=== PATIENT | female | born 1995 | race Hispanic/Latino ===

== ENCOUNTER 2018-03-24 15:55 | Emergency (ER) | payer OTHER, MEDICAID, SELFPAY ==
[2018-03-24 16:09] VITALS: BP 116/73; PULSE 95; RESP 15; TEMP 36.9; O2SAT 100; BMI 29.4
[2018-03-24] MEDS: predniSONE 20 MG TABLET 60 MG PO (16:27)
[2018-03-24] MEDS: diphenhydrAMINE 25 MG TABLET PO (16:27)
--- NOTE | 2018-03-24 17:26 | ED.ALLEREA ---
HPI - Allergic Reaction General Chief complaint: Allergic Reaction Stated complaint: allergic reaction Time Seen by Provider: 03/24/18 17:26 Source: patient Mode of arrival: ambulatory Limitations: no limitations History of Present Illness HPI narrative: The patient is a 22-year-old female who has history of multiple allergic reactions to weak. She actually was getting an allergy shot today when she felt that her throat was swollen and then she started having upper lip swelling. She actually waited at [facility] to be evaluated but felt like it was getting worse so she came to the ER here. She did get an IV but unclear if she got any medication she says no. She did get prednisone and Benadryl here she overall is feeling better. MD complaint: allergic reaction and facial swelling Related Data Home Medications Medication Instructions Recorded Confirmed cetirizine 20 mg PO QDAYP PRN #0 05/15/16 11/24/17 ibuprofen 600 mg PO TID #0 10/17/16 11/24/17 multivitamin [Multiple Vitamins] 1 tab PO QDAY #0 10/23/16 11/24/17 amitriptyline 30 mg PO HS #0 03/20/17 11/24/17 sumatriptan succinate [Imitrex] 25 mg PO QDAY PRN #0 03/20/17 03/24/18 fluticasone 1 spray 03/24/18 Previous Rx's Medication Instructions Recorded epinephrine 0.3 mg IM PRN PRN #1 syr 04/08/17 clotrimazole-betamethasone 1 denae TOPICAL BID #30 gm 07/21/17 [Lotrisone] Allergies Allergy/AdvReac Type Severity Reaction Status Date / Time penicillin G [PENICILLIN G] Allergy Severe rash Verified 03/24/18 16:09 wheat [WHEAT] Allergy Unknown Verified 03/24/18 16:09 allergy shot Allergy Uncoded 03/24/18 16:09 Review of Systems Review of Systems GENERAL: Denies chills, fatigue, malaise, fever, sweats, travel HEENT: See HPI RESPIRATORY: Denies dyspnea, cough, wheezing, hemoptysis, sputum. CARDIOVASCULAR: Denies chest pain, palpitations, orthopnea, edema GASTROINTESTINAL: Denies nausea, vomiting, abdominal pain, diarrhea, constipation, melena. : Denies dysuria, frequency, incontinence, hematuria, urinary retention, flank pain. MUSCULOSKELETAL: Denies weakness, joint pain, or bony pain SKIN: No rash, no erythema, no pruritus NEUROLOGIC: Denies weakness, dizziness, headache, numbness, change in speech, confusion PSYCHIATRIC: No concerning psychosocial issues. 12 point review of systems is negative except for those stated above and HPI PFSH Family History Brother Age: 18 Asthma Father Age: 46 Hyperlipidemia Diabetes mellitus Sister Age: 11 Asthma Social History Smoking Status: Never smoker Exam Initial Vital Signs Initial Vital Signs: Vital Signs Temperature 98.4 F 03/24/18 16:09 Pulse Rate 95 H 03/24/18 16:09 Respiratory Rate 15 03/24/18 16:09 Blood Pressure 116/73 03/24/18 16:09 Pulse Oximetry 100 03/24/18 16:09 GENERAL: [Well-appearing, well-nourished] and in [no acute] distress. HEENT: Head atraumatic,EOMI, No lip swelling no tongue swelling no stridor CARDIOVASCULAR: Regular rate and rhythm without murmurs, rubs or gallops. RESPIRATORY: Breath sounds equal bilaterally, no wheezes rales or rhonchi. ABDOMEN: Soft, nontender. Normoactive bowel sounds all 4 quadrants. No guarding or rebound. EXTREMITIES: Normal range of motion, no clubbing or edema. Neurovascularly intact NEUROLOGICAL: Alert and oriented x4. SKIN: Warm, dry, no laceration, no petechiae, no rashes or lesions. which is some mild erythema on the dorsal side of her hand which she says is new. His blanchable non streaking Course Orders Ordered: Discontinued Medications Diphenhydramine HCl (Benadryl) 25 mg PO NOW ONE Stop: 03/24/18 16:27 Last Admin: 03/24/18 16:27 Dose: 25 mg Prednisone (Deltasone) 60 mg PO NOW ONE Stop: 03/24/18 16:27 Last Admin: 03/24/18 16:27 Dose: 60 mg Vital Signs - 8 hr 03/24/18 16:09 03/24/18 17:43 Temperature 98.4 F 98.4 F Pulse Rate 95 H 83 Respiratory Rate 15 15 Blood Pressure 116/73 124/80 Pulse Oximetry 100 99 MDM - Allergic Reaction MDM Narrative Medical decision making narrative: she actually comes with an IV from [facility]. She feels ready and able to go home she has had multiple reactions like this in the past she knows warning signs. Discharge Plan Departure Patient Disposition: Home Clinical Impression: Allergic reaction Discharge Date/Time: 03/24/18 17:44 Interventions: ED Discharge Assessment Last Done: 03/24/18 17:43 Instructions: Anaphylaxis Activity Restrictions/Additional Instructions: *You have been diagnosed with allergic reaction *Continue to take medications as directed *Follow up with your primary care provider in 2-3 days *Return to ER if you should have any new, worsening or concerning symptoms Prescriptions: No Action cetirizine 10 MG tablet 20 mg PO QDAYP PRNQty: 0 RF: 0 ibuprofen 600 MG tablet 600 mg PO TID Qty: 0 RF: 0 multivitamin [Multiple Vitamins] 1 EACH tablet 1 tab PO QDAY Qty: 0 RF: 0 amitriptyline 10 MG tablet 30 mg PO HS Qty: 0 RF: 0 sumatriptan succinate [Imitrex] 25 MG tablet 25 mg PO QDAY PRN (Reason: Migraine Headache) Qty: 0 RF: 0 epinephrine 0.3 MG/0.3 ML auto-injector 0.3 mg IM PRN PRNQty: 1 RF: 0 clotrimazole-betamethasone [Lotrisone] 15 GM cream 1 denae Topical BID Qty: 30 RF: 1 fluticasone 50 mcg/actuation spray,suspension 1 spray RF: 0 Referrals: Casandra aMnzo DO [Primary Care Provider] -
[2018-03-24 17:43] VITALS: BP 124/80; PULSE 83; RESP 15; TEMP 36.9; O2SAT 99
== END 2018-03-24 17:44 | disposition home or self-care (01) ==
PROVIDERS: Emergency Provider Emergency Medicine; PCP Family Medicine
DX: T78.40XA Allergy, unspecified, initial encounter (principal)
CPT/HCPCS: 99282; 99283

== ENCOUNTER 2018-04-25 19:18 | Emergency (ER) | payer OTHER, MEDICAID, SELFPAY ==
[2018-04-25 19:21] VITALS: BP 120/75; PULSE 72; TEMP 36.9; O2SAT 100
--- NOTE | 2018-04-25 20:01 | ED_ITS ---
HPI - Abdominal Pain <Karin Javier PA-C - Last Filed: 04/25/18 22:40> General Chief Complaint: Abdominal Pain Stated Complaint: BACK PAIN HAD URINE SAMPLE COME OUT WITH BLOOD Time Seen by Provider: 04/25/18 19:59 Source: patient and old records reviewed Mode of arrival: ambulatory Limitations: no limitations History of Present Illness HPI narrative: This 22-year-old female is sent for evaluation of left flank pain by 1 of the local urgent care clinics today. Report from there shows that she had a large amount of micro hematuria, but no leukocytes or nitrites in the urine. test was negative. Patient states that pain began about a week ago, more localized in the left back/flank area. At 1st she thought it was muscle pain or spasm, but since then the frequency of pain episodes have increased and has started to radiate around to the side and left upper abdominal area. She states that these areas can be tender to touch. 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 This is not typical for her. She states that there do not seem to be triggering features for pain at this point nor clear alleviating features. She was taking ibuprofen but has not taken any today. She denies any fever, chills, sweats. She states that she has had a little bit of nausea at times but has been eating and drinking normally including pushing fluids over the weekend. She states that she has some increased urinary frequency after drinking more fluids, no dysuria. She denies vaginal discharge or STD concerns. She denies any bowel habit changes and had a normal bowel movement today. She denies any recent illness, no new chest pain , dyspnea or other complaints on systems review. LMP was about a month ago Related Data Home Medications Medication Instructions Recorded Confirmed cetirizine 20 mg PO QDAYP PRN #0 05/15/16 11/24/17 ibuprofen 600 mg PO TID #0 10/17/16 11/24/17 multivitamin [Multiple Vitamins] 1 tab PO QDAY #0 10/23/16 11/24/17 amitriptyline 30 mg PO HS #0 03/20/17 11/24/17 sumatriptan succinate [Imitrex] 25 mg PO QDAY PRN #0 03/20/17 03/24/18 fluticasone 1 spray 03/24/18 Previous Rx's Medication Instructions Recorded epinephrine 0.3 mg IM PRN PRN #1 syr 04/08/17 clotrimazole-betamethasone 1 denae TOPICAL BID #30 gm 07/21/17 [Lotrisone] meloxicam 15 mg PO DAILY #10 tab 04/25/18 sulfamethoxazole-trimethoprim 1 tab PO BID #4 tab 04/25/18 Allergies Allergy/AdvReac Type Severity Reaction Status Date / Time penicillin G [PENICILLIN G] Allergy Severe rash Verified 03/24/18 16:09 wheat [WHEAT] Allergy Unknown Verified 03/24/18 16:09 allergy shot Allergy Uncoded 03/24/18 16:09 Review of Systems <Karin Javier PA-C - Last Filed: 04/25/18 22:40> Review of Systems All systems reviewed & are unremarkable except as noted in HPI and below Exam <Karin Javier PA-C - Last Filed: 04/25/18 22:40> Narrative Exam Narrative: GENERAL APPEARANCE: Patient sitting comfortably, in no distress. HEENT: PERRL, EOMI, no scleral icterus NECK: Supple LUNGS: Clear to auscultation bilaterally. HEART: Rate and rhythm regular, normal S1 and S2, no S3 or S4. ABDOMEN: Soft, nondistended, bowel sounds present x 4 quadrants, no masses palpable, no hepatosplenomegaly. She has mild tenderness from the left lateral flank to the lateral abdomen and more tenderness over the lateral anterior costal margin without guarding or rebound. No tenderness elsewhere over the abdomen EXTREMITIES: No edema, no calf tenderness DERMATOLOGIC: No jaundice or exanthem NEUROLOGIC: Alert and oriented with normal speech and coordination Initial Vital Signs Initial Vital Signs: Vital Signs Temperature 98.5 F 04/25/18 19:21 Pulse Rate 72 04/25/18 19:21 Blood Pressure 120/75 04/25/18 19:21 Pulse Oximetry 100 04/25/18 19:21 <Terry Fuller MD - Last Filed: 04/26/18 07:21> Initial Vital Signs Initial Vital Signs: Vital Signs Temperature 98.5 F 04/25/18 19:21 Pulse Rate 72 04/25/18 19:21 Blood Pressure 120/75 04/25/18 19:21 Pulse Oximetry 100 04/25/18 19:21 Course <Karin Javier PA-C - Last Filed: 04/25/18 22:40> Orders Ordered: Discontinued Medications Ketorolac Tromethamine (Toradol) 30 mg IV NOW ONE Stop: 04/25/18 20:17 Last Admin: 04/25/18 20:26 Dose: 30 mg Trimethoprim/Sulfamethoxazole (Bactrim Ds Prepack) 1 bottle MISC SEEINSTR ONE Stop: 04/25/18 22:38 Last Admin: 04/25/18 22:41 Dose: 1 bottle Patient reported significant improvement after Toradol and appeared comfortable. I spoke with Dr. Rod radiologist reading films who advised there is a nonobstructing 2 mm calculus in the right kidney with no hydronephrosis, mild generalized bladder wall thickening. Diverticulosis without diverticulitis. Vital Signs - 8 hr 04/25/18 19:21 04/25/18 21:24 Temperature 98.5 F Pulse Rate 72 76 Respiratory Rate 19 Blood Pressure 120/75 Blood Pressure [Right Arm] 101/50 L Pulse Oximetry 100 100 <Terry Fuller MD - Last Filed: 04/26/18 07:21> Orders Ordered: Discontinued Medications Ketorolac Tromethamine (Toradol) 30 mg IV NOW ONE Stop: 04/25/18 20:17 Last Admin: 04/25/18 20:26 Dose: 30 mg Trimethoprim/Sulfamethoxazole (Bactrim Ds Prepack) 1 bottle MISC SEEINSTR ONE Stop: 04/25/18 22:38 Last Admin: 04/25/18 22:41 Dose: 1 bottle Vital Signs - 8 hr 04/25/18 19:21 04/25/18 21:24 Temperature 98.5 F Pulse Rate 72 76 Respiratory Rate 19 Blood Pressure 120/75 Blood Pressure [Right Arm] 101/50 L Pulse Oximetry 100 100 MDM - Abdominal Pain <Karin Javier PA-C - Last Filed: 04/25/18 22:40> Medical Records Attestation: I reviewed the patient's medical records. Lab Data Attestation: I reviewed the patient's lab results. Result diagrams: 04/25/18 20:20 04/25/18 20:20 Lab Results 04/25/18 04/25/18 04/25/18 Range/Units 20:05 20:20 20:20 WBC 9.0 (4.5-11.0) X10^3/uL RBC 4.54 (4.0-5.2) X10^6/uL Hgb 13.3 (12.0-16.0) g/dL Hct 40.1 (36-46) % MCV 88.2 (80-100) fL MCH 29.2 (26-34) PG MCHC 33.1 (30-36) % RDW 14.0 (11.6-14.8) % Plt Count 359 (150-400) X10^3/uL Neut % (Auto) 52.7 (50-75) % Lymph % (Auto) 33.2 (25-40) % Cole % (Auto) 9.4 (3-14) % Eos % (Auto) 4.1 H (2-4) % Baso % (Auto) 0.6 (0-2) % Neut # (Auto) 4800 (7678-3855) /uL Sodium 143 (137-145) mmol/L Potassium 3.7 (3.4-5.1) mmol/L Chloride 106 (98-107) mmol/L Carbon Dioxide 24 (22-32) mmol/L BUN 7 (7-17) mg/dL Creatinine 0.40 L (0.52-1.04) mg/dL Estimated GFR > 60.0 (>60) mL/min BUN/Creatinine Ratio 17.5 (6-22) Glucose 88 (70-100) mg/dL Calcium 8.9 (8.4-10.2) mg/dL Total Bilirubin 0.2 (0.2-1.3) mg/dL AST 25 (14-36) IU/L ALT 25 (9-52) IU/L Alkaline Phosphatase 68 (38-126) U/L Total Protein 7.2 (6.3-8.2) g/dL Albumin 4.2 (3.5-5.0) g/dL Globulin 3.0 (1.7-4.1) g/dL Albumin/Globulin Ratio 1.4 (1.0-2.8) Lipase 95 (23-300) U/L Urine Color Yellow Urine Appearance Clear Urine pH 6.0 (4.5-8.0) Ur Specific [place] 1.020 (1.000-1.035) Urine Protein Negative (Negative) Urine Glucose (UA) Negative (Normal) g/dL Urine Ketones Negative (NEGATIVE) Urine Occult Blood 2+ H (Negative) Urine Nitrate Negative (Negative) Urine Bilirubin Negative (NEGATIVE) Urine Urobilinogen 0.2 (0.2) E.U./dL Ur Leukocyte Esterase Negative (NEGATIVE) Urine RBC 0-1/hpf (0-5/HPF) Urine WBC 0-1/hpf (0-5/HPF) Ur Squamous Epith Cells 5-10 /hpf H Urine Bacteria Few (2-10) H (None) Ur Culture Indicated? Cult not indicated Micro UA Comment Not Reportable Imaging Data KUB: Radiologist's impression: [address] [address] [address] Scan Report Signed Patient: Kaleigh Blackwood MR#: [id number] : 1995 Acct:[id number] Age/Sex: 22 / F Date of Service: 04/25/18 Loc: ED Accession Number: [id number] Procedure: CT kidney ureter bladder (KUB) Ordering Provider: Karin Javier P.A-C PROCEDURE: CT KIDNEY URETER BLADDER (KUB) INDICATIONS: Left flank pain, hematuria TECHNIQUE: Noncontrast 5 mm thick sections acquired from the diaphragms to the symphysis. 5 mm thick coronal and sagittal reformats were then performed. For radiation dose reduction, the following was used: automated exposure control, adjustment of mA and/or kV according to patient size. COMPARISON: [facility], CT, HEAD WITHOUT CONTRAST, 10/17/2016, 10:04. FINDINGS: Image quality: Excellent. Lung bases: Lung bases are clear. Heart size is normal. Urinary system: Both kidneys are normal in size. There is a 2 mm nonobstructing nephrolith within the right renal pelvis. No hydronephrosis or perinephric fat stranding. Both ureters appear non-dilated throughout their expected courses. Bladder wall thickness is mildly thickened; no calcified bladder stones. Other solid organs: Liver is normal in size. Gallbladder is unremarkable. Pancreas is normal in contours. Spleen is normal in size. No adrenal nodules. Peritoneum and bowel: Unenhanced bowel loops demonstrate normal wall thickness and caliber. No free fluid or air. There is colonic diverticulosis without evidence of acute diverticulitis. Normal appendix best seen on axial image 66 of series 2. Nodes and vessels: No retroperitoneal or mesenteric adenopathy by size criteria. Aorta and inferior vena cava are normal in caliber. Abdominal wall: No ventral hernias. Pelvis: No free pelvic fluid. No inguinal hernias or adenopathy. Bones: Mild degenerative changes of the anterior bilateral sacroiliac joints. IMPRESSION: #1. 2 mm nonobstructing nephrolith within the right kidney. No hydronephrosis bilaterally. #2. Mild diffuse bladder wall thickening, which may be secondary to incomplete distention versus underlying inflammation. Correlation with urinalysis suggested to exclude urinary tract infection. #3. Colonic diverticulosis without evidence of acute diverticulitis. Dictated by: Jim Rod M.D. on 04/25/2018 at 22:10 Approved by: Jim Rod M.D. on 04/25/2018 at 22:19 <Terry Fuller MD - Last Filed: 04/26/18 07:21> Lab Data Lab Results 04/25/18 04/25/18 04/25/18 Range/Units 20:05 20:20 20:20 WBC 9.0 (4.5-11.0) X10^3/uL RBC 4.54 (4.0-5.2) X10^6/uL Hgb 13.3 (12.0-16.0) g/dL Hct 40.1 (36-46) % MCV 88.2 (80-100) fL MCH 29.2 (26-34) PG MCHC 33.1 (30-36) % RDW 14.0 (11.6-14.8) % Plt Count 359 (150-400) X10^3/uL Neut % (Auto) 52.7 (50-75) % Lymph % (Auto) 33.2 (25-40) % Cole % (Auto) 9.4 (3-14) % Eos % (Auto) 4.1 H (2-4) % Baso % (Auto) 0.6 (0-2) % Neut # (Auto) 4800 (0459-0299) /uL Sodium 143 (137-145) mmol/L Potassium 3.7 (3.4-5.1) mmol/L Chloride 106 (98-107) mmol/L Carbon Dioxide 24 (22-32) mmol/L BUN 7 (7-17) mg/dL Creatinine 0.40 L (0.52-1.04) mg/dL Estimated GFR > 60.0 (>60) mL/min BUN/Creatinine Ratio 17.5 (6-22) Glucose 88 (70-100) mg/dL Calcium 8.9 (8.4-10.2) mg/dL Total Bilirubin 0.2 (0.2-1.3) mg/dL AST 25 (14-36) IU/L ALT 25 (9-52) IU/L Alkaline Phosphatase 68 (38-126) U/L Total Protein 7.2 (6.3-8.2) g/dL Albumin 4.2 (3.5-5.0) g/dL Globulin 3.0 (1.7-4.1) g/dL Albumin/Globulin Ratio 1.4 (1.0-2.8) Lipase 95 (23-300) U/L Urine Color Yellow Urine Appearance Clear Urine pH 6.0 (4.5-8.0) Ur Specific [place] 1.020 (1.000-1.035) Urine Protein Negative (Negative) Urine Glucose (UA) Negative (Normal) g/dL Urine Ketones Negative (NEGATIVE) Urine Occult Blood 2+ H (Negative) Urine Nitrate Negative (Negative) Urine Bilirubin Negative (NEGATIVE) Urine Urobilinogen 0.2 (0.2) E.U./dL Ur Leukocyte Esterase Negative (NEGATIVE) Urine RBC 0-1/hpf (0-5/HPF) Urine WBC 0-1/hpf (0-5/HPF) Ur Squamous Epith Cells 5-10 /hpf H Urine Bacteria Few (2-10) H (None) Ur Culture Indicated? Cult not indicated Micro UA Comment Not Reportable Discharge Plan Departure Patient Disposition: Home Clinical Impression: Hematuria, Left flank pain Discharge Date/Time: 04/25/18 22:44 Interventions: ED Discharge Assessment Last Done: 04/25/18 22:44 Instructions: DI for Hematuria, DI for Flank Pain Activity Restrictions/Additional Instructions: Please return as we discussed if you have any acutely worsening symptoms. Please take your first dose of antibiotics tonight and continue this for 3 days total. superintendent meter tests the once daily anti-inflammatory/pain reliever that I have prescribed for you ( Meloxicam) tomorrow morning and start that as well. Please call your new primary care clinic and see whether they would like you to see 1 of their urologists that is affiliated with them, and if not you can call Dr. Len Solomon who also sees patients locally. The cause of your flank pain was not clear from your CT or labwork tonight. You do have some microscopic blood in the urine and your bladder wall area looks a little bit thick on the scan, which could be due to inflammation, so this is the reason we would like to have you follow up with urology to determine whether further testing such as a look inside the bladder may be needed. Prescriptions: New meloxicam 15 mg tablet 15 mg PO DAILY Qty: 10 RF: 0 sulfamethoxazole-trimethoprim 800-160 mg tablet 1 tab PO BID Qty: 4 RF: 0 No Action cetirizine 10 MG tablet 20 mg PO QDAYP PRNQty: 0 RF: 0 ibuprofen 600 MG tablet 600 mg PO TID Qty: 0 RF: 0 multivitamin [Multiple Vitamins] 1 EACH tablet 1 tab PO QDAY Qty: 0 RF: 0 amitriptyline 10 MG tablet 30 mg PO HS Qty: 0 RF: 0 sumatriptan succinate [Imitrex] 25 MG tablet 25 mg PO QDAY PRN (Reason: Migraine Headache) Qty: 0 RF: 0 epinephrine 0.3 MG/0.3 ML auto-injector 0.3 mg IM PRN PRNQty: 1 RF: 0 clotrimazole-betamethasone [Lotrisone] 15 GM cream 1 denae Topical BID Qty: 30 RF: 1 fluticasone 50 mcg/actuation spray,suspension 1 spray RF: 0 Referrals: [facility], [facility] [Other] Len Solomon MD [Physician] - <Terry Fuller MD - Last Filed: 04/26/18 07:21> [facility] I was present in the ER at the time this patient's care. I was available for verbal consultation or to see the patient directly. I agree with his assessment and treatment plan.
[2018-04-25 20:18] LABS: Appearance Urine UA CLEAR; Bilirubin Urine UA NEGATIVE (NEGATIVE); Color Urine UA YELLOW; Glucose Urine UA NEGATIVE (Normal); Ketones Urine UA NEGATIVE (NEGATIVE); Leukocyte Esterase Urine UA NEGATIVE (NEGATIVE); Nitrite Urine UA NEGATIVE (Negative); Occult Blood Urine UA 2+ (Negative); Protein Urine UA NEGATIVE (Negative); Urobilinogen Urine UA 0.2 E.U./dL (0.2)
--- NOTE | 2018-04-25 20:18 | DI.CT.S_ITS ---
PROCEDURE: CT KIDNEY URETER BLADDER (KUB) INDICATIONS: Left flank pain, hematuria TECHNIQUE: Noncontrast 5 mm thick sections acquired from the diaphragms to the symphysis. 5 mm thick coronal and sagittal reformats were then performed. For radiation dose reduction, the following was used: automated exposure control, adjustment of mA and/or kV according to patient size. COMPARISON: [facility], CT, HEAD WITHOUT CONTRAST, 10/17/2016, 10:04. FINDINGS: Image quality: Excellent. Lung bases: Lung bases are clear. Heart size is normal. Urinary system: Both kidneys are normal in size. There is a 2 mm nonobstructing nephrolith within the right renal pelvis. No hydronephrosis or perinephric fat stranding. Both ureters appear non-dilated throughout their expected courses. Bladder wall thickness is mildly thickened; no calcified bladder stones. Other solid organs: Liver is normal in size. Gallbladder is unremarkable. Pancreas is normal in contours. Spleen is normal in size. No adrenal nodules. Peritoneum and bowel: Unenhanced bowel loops demonstrate normal wall thickness and caliber. No free fluid or air. There is colonic diverticulosis without evidence of acute diverticulitis. Normal appendix best seen on axial image 66 of series 2. Nodes and vessels: No retroperitoneal or mesenteric adenopathy by size criteria. Aorta and inferior vena cava are normal in caliber. Abdominal wall: No ventral hernias. Pelvis: No free pelvic fluid. No inguinal hernias or adenopathy. Bones: Mild degenerative changes of the anterior bilateral sacroiliac joints. IMPRESSION: #1. 2 mm nonobstructing nephrolith within the right kidney. No hydronephrosis bilaterally. #2. Mild diffuse bladder wall thickening, which may be secondary to incomplete distention versus underlying inflammation. Correlation with urinalysis suggested to exclude urinary tract infection. #3. Colonic diverticulosis without evidence of acute diverticulitis. Dictated by: Jim Rod M.D. on 04/25/2018 at 22:10 Approved by: Jim Rod M.D. on 04/25/2018 at 22:19
[2018-04-25 20:26] LABS: Add Manual Diff / Slide Review NO; Basophils Percent Auto 0.6 % (0-2); Eosinophils Percent Auto 4.1 % (2-4); Hematocrit 40.1 % (36-46); Hemoglobin 13.3 g/dL (12.0-16.0); Lymphocytes Percent Auto 33.2 % (25-40); Mean Corpuscular HGB Conc 33.1 % (30-36); Mean Corpuscular Hemoglobin 29.2 PG (26-34); Mean Corpuscular Volume 88.2 fL (80-100); Monocytes Percent Auto 9.4 % (3-14); Neutrophils Absolute Auto 4800 /uL (1500-7000); Neutrophils Percent Auto 52.7 % (50-75); Platelet Count 359 X10^3/uL (150-400); Red Blood Cell Count 4.54 X10^6/uL (4.0-5.2)
[2018-04-25] MEDS: KETOROLAC 60 MG/2 ML VIAL 30 MG IV (20:26)
[2018-04-25 20:28] LABS: Bacteria Urine Few (2-10); Culture Indicated Urine Cult Not Indicated; RBC Urine 0-1/HPF (0-5/HPF); Squamous Epithelial Cell Urine 5-10 /HPF; WBC Urine 0-1/HPF (0-5/HPF)
[2018-04-25 20:44] LABS: Alanine Aminotransferase 25 IU/L (9-52); Albumin 4.2 g/dL (3.5-5.0); Albumin Globulin Ratio 1.4 (1.0-2.8); Alkaline Phosphatase 68 U/L (38-126); Aspartate Aminotransferase 25 IU/L (14-36); BUN Creatinine Ratio 17.5 (6-22); Bilirubin Total 0.2 mg/dL (0.2-1.3); Blood Urea Nitrogen 7 mg/dL (7-17); Calcium 8.9 mg/dL (8.4-10.2); Carbon Dioxide 24 mmol/L (22-32); Chloride 106 mmol/L (98-107); Estimated Glomerular Filt Rate > 60.0 mL/min (>60); Glucose 88 mg/dL (70-100); HEMOLYSIS 20 (0-50); Lipase 95 U/L (23-300); Potassium 3.7 mmol/L (3.4-5.1); Sodium 143 mmol/L (137-145); Total Protein 7.2 g/dL (6.3-8.2)
[2018-04-25 21:24] VITALS: BP 101/50; PULSE 76; RESP 19; O2SAT 100
[2018-04-25] MEDS: TRIMETH/SULFA 160/800 PREPACK 1 BOTTLE MISC (22:41)
== END 2018-04-25 22:44 | disposition home or self-care (01) ==
PROVIDERS: Emergency Provider Internal Medicine; PCP Family Medicine
DX: R31.9 Hematuria, unspecified (principal)
CPT/HCPCS: 36591; 74176; 80053; 81001; 83690; 85025; 96374; 99282; 99284; J1885

== ENCOUNTER → 2019-03-01 18:30 | Outpatient (CLI) | payer OTHER, SELFPAY ==
--- NOTE | 2019-03-01 18:33 | DI.RAD.S_ITS ---
PROCEDURE: XR HAND RT MIN 3V INDICATIONS: RIGHT HAND PAIN TECHNIQUE: 3 views of the hand(s) acquired. COMPARISON: None. FINDINGS: Bones: No fractures or dislocations. Carpal bones are normally aligned. No suspicious bony lesions. Soft tissues: No suspicious soft tissue calcifications. IMPRESSION: Unremarkable examination. If the patient's pain or other symptoms persist, consider further evaluation with MRI Dictated by: Washington Rojas M.D. on 03/02/2019 at 8:58 Approved by: Washington Rojas M.D. on 03/02/2019 at 9:00
== END ==
PROVIDERS: PCP Family Medicine; Visit Provider Obstetrics & Gynecology
DX: M79.641 Pain in right hand (principal)
CPT/HCPCS: 73130

== ENCOUNTER → 2020-05-23 09:09 | Outpatient (CLI) | payer OTHER, SELFPAY ==
--- NOTE | 2020-05-23 09:10 | DI.US.S_ITS ---
PROCEDURE: US OB >= 14 WEEKS FETUS INDICATIONS: ANATOMY OUTSIDE/PRIOR DATING DATA: Last menstrual period (LMP): 12/15/2019. LMP-based estimated date of delivery (NEELAM): 09/20/2020 . First dating scan (date and location): 05/23/2020 . Estimated date of delivery (NEELAM) from first dating scan: 10/16/2020 . TECHNIQUE: Real-time scanning was performed of the fetus, with image documentation and biometric measurements. Endovaginal scanning: No COMPARISON: None. FINDINGS: General: A single living intrauterine gestation is present. Presentation: Transverse. Placenta: Placental position is anterior , without previa. Amniotic fluid index: 10 cm, normal range is 5-24 cm. heart rate: 158 beats per minute. Maternal cervical canal: 3.3 cm cm long. Normal lower limit is 2.5 cm. biometrics: Biparietal diameter: 19 weeks 1 day Head circumference: 19 weeks 3 days Abdominal circumference: 19 weeks 2 days Femur length: 18 weeks 6 days Estimated gestational age from initial scan: not applicable. Composite gestational age from present scan: 19 weeks 1 day Estimated weight and percentile: 275 g Measurement variability for biometric dating: +/- 7 days from 14 weeks to 15 weeks 6 days gestation, +/- 10 days from 16 weeks to 21 weeks 6 days gestation, +/- 2 weeks from 22 weeks to 27 weeks 6 days gestation, +/- 3 weeks for 28 weeks gestation or later. weight reference: 4500 g or EFW >90/95% is considered macrosomia or large for gestational age. EFW <10% is small for gestational age. EFW 5% or less is considered intra-uterine growth restriction. Anatomic survey: Neuro: Ventricles are non-dilated at less than 10 mm. Cisterna magna is normal at 3-11 mm. Cerebellum is normal in size and morphology. Nuchal skin fold: Not well seen. Face: Not well seen. Spine: No evidence for spina bifida. Heart: Not well visualized. Diaphragm: Not well visualized. Stomach: Left-sided stomach is present. Kidneys: No hydronephrosis. Normal is less than 5 mm in 2nd trimester, less than 7 mm in 3rd trimester. Cord: Not well visualized. Bladder: Normal in size. Extremities: Extremity suboptimally visualized. IMPRESSION: 1. 19 week 1 day single living IUP corresponding to ultrasound NEELAM of 10/16/2020. 2. Limited anatomic survey. Follow-up recommended. Dictated by: Husam TIWARI Interpreted: Gume Hoyos MD on 05/23/2020 at 10:09 Approved by: Gume Hoyos M.D. on 05/23/2020 at 13:47
== END ==
PROVIDERS: PCP Family Medicine; Referring Provider Family Medicine; Visit Provider Family Medicine
DX: Z36.89 Encounter for other specified antenatal screening (principal); Z3A.19 19 weeks gestation of pregnancy
CPT/HCPCS: 76811

== ENCOUNTER → 2020-05-29 11:14 | Outpatient (CLI) | payer OTHER, SELFPAY ==
[2020-05-29 13:37] LABS: Urine Chlamydia NOT DETECTED; Urine N gonorrhoeae NOT DETECTED
== END ==
PROVIDERS: PCP Family Medicine; Visit Provider Family Medicine
DX: Z34.02 Encounter for supervision of normal first pregnancy, second trimester (principal)
CPT/HCPCS: 87077; 87086; 87186; 87491; 87591

== ENCOUNTER 2020-08-05 13:04 | Outpatient (CLI) | payer OTHER, SELFPAY | END 2020-08-05 14:13 | disposition home or self-care (01) | LOC: LABOR 13:36 → OB 08-06 08:41 | PROVIDERS: PCP Family Medicine; Referring Provider Family Medicine; Visit Provider Family Medicine | DX: Z03.71 Encounter for suspected problem with amniotic cavity and membrane ruled out (principal); Z3A.29 29 weeks gestation of pregnancy | CPT/HCPCS: 59050; 84112; G0378; G0379 ==

== ENCOUNTER 2020-08-12 23:22 | Outpatient (CLI) | payer OTHER, SELFPAY | END 2020-08-13 00:57 | disposition home or self-care (01) | LOC: OB 08-13 07:02 | PROVIDERS: PCP Family Medicine; Referring Provider Obstetrics & Gynecology; Visit Provider Obstetrics & Gynecology | DX: O36.8130 Decreased fetal movements, third trimester, not applicable or unspecified (principal); Z3A.30 30 weeks gestation of pregnancy | CPT/HCPCS: 59025; 84112; G0378; G0379 ==

== ENCOUNTER → 2020-08-14 12:01 | Outpatient (CLI) | payer OTHER, SELFPAY ==
[2020-08-14 13:07] LABS: Hemoglobin 11.7 g/dL (12.0-16.0)
[2020-08-14 15:42] LABS: Hemoglobin A1C% w Est Avg Glu 5.5 % (4.0-6.0)
[2020-08-14 16:32] LABS: TSH w/ Reflex to FT4 1.18 uIU/mL (0.47-4.68)
== END ==
PROVIDERS: PCP Family Medicine; Referring Provider Family Medicine; Visit Provider Family Medicine
DX: Z34.02 Encounter for supervision of normal first pregnancy, second trimester (principal); Z3A.25 25 weeks gestation of pregnancy; Z34.82 Encounter for supervision of other normal pregnancy, second trimester
CPT/HCPCS: 36415; 83036; 84443; 85014; 85018

== ENCOUNTER → 2020-08-21 16:15 | Outpatient (CLI) | payer OTHER, SELFPAY ==
--- NOTE | 2020-08-21 16:16 | DI.US.S_ITS ---
PROCEDURE: US OB LIMITED INDICATIONS: SIZE GREATER THAN DATES - GESTATIONAL DM OUTSIDE/PRIOR DATING DATA: Last menstrual period (LMP): 12/25/2019. LMP-based estimated date of delivery (NEELAM): 09/20/2020. First dating scan (date and location): 05/23/2020. Estimated date of delivery (NEELAM) from first dating scan: 10/16/2020. TECHNIQUE: Real-time scanning was performed of the fetus, with image documentation and biometric measurements. Endovaginal scanning: Not indicated COMPARISON: [facility], OB >= 14 WEEKS FETUS, 05/23/2020, 9:19. FINDINGS: General: A single living intrauterine gestation is present. Presentation: Vertex Placenta: Placental position is anterior, without previa. Amniotic fluid index: 13.2 cm, normal range is 5-24 cm. heart rate: 157 beats per minute. Maternal cervical canal: Not well seen. biometrics: Biparietal diameter: 8.4 cm, 34 weeks, 0 day Head circumference: 31 cm, 34 weeks, 2 days Abdominal circumference: 29 cm, 33 weeks, 0 day Femur length: 6.2 cm, 32 weeks, 1 day Estimated gestational age from initial scan: 32 weeks, 0 day Composite gestational age from present scan: 33 weeks, 3 days Estimated weight and percentile: 2092 g, 71 percentile. Measurement variability for biometric dating: +/- 7 days from 14 weeks to 15 weeks 6 days gestation, +/- 10 days from 16 weeks to 21 weeks 6 days gestation, +/- 2 weeks from 22 weeks to 27 weeks 6 days gestation, +/- 3 weeks for 28 weeks gestation or later. weight reference: 4500 g or EFW >90/95% is considered macrosomia or large for gestational age. EFW <10% is small for gestational age. EFW 5% or less is considered intra-uterine growth restriction. Other: Not applicable. IMPRESSION: 1. Single live intrauterine with fetus in vertex presentation. heart rate is 157 beats per minute. YOMAIRA equals 13.2 cm and is within normal limits. 2. Estimated weight is at the 71st percentile. Dictated by: Aj Guajardo M.D. on 08/21/2020 at 18:07 Approved by: Aj Guajardo M.D. on 08/21/2020 at 18:09
== END ==
PROVIDERS: PCP Family Medicine; Referring Provider Family Medicine; Visit Provider Family Medicine
DX: O24.419 Gestational diabetes mellitus in pregnancy, unspecified control (principal); Z3A.33 33 weeks gestation of pregnancy; Z36.88 Encounter for antenatal screening for fetal macrosomia
CPT/HCPCS: 76815

== ENCOUNTER → 2020-08-28 08:51 | Outpatient (CLI) | payer OTHER, SELFPAY ==
[2020-08-28 10:15] LABS: Appearance Urine UA CLEAR; Bilirubin Urine UA NEGATIVE (NEGATIVE); Color Urine UA YELLOW; Glucose Urine UA NEGATIVE (Negative); Ketones Urine UA NEGATIVE (NEGATIVE); Leukocyte Esterase Urine UA TRACE (NEGATIVE); Nitrite Urine UA NEGATIVE (Negative); Occult Blood Urine UA 3+ (Negative); Protein Urine UA TRACE (Negative); Specific Gravity Urine UA 1.025 (1.000-1.035); Urobilinogen Urine UA 0.2 E.U./dL (0.2)
[2020-08-28 10:16] LABS: pH Urine UA 6.5 (4.5-8.0)
[2020-08-28 10:23] LABS: Bacteria Urine Moderate (10-30); Culture Indicated Urine Cult Not Indicated; RBC Urine 5-10/HPF (0-5/HPF); Squamous Epithelial Cell Urine 5-10 /HPF (0-5/HPF); WBC Urine 0-1/HPF (0-5/HPF)
== END ==
PROVIDERS: PCP Family Medicine; Referring Provider Family Medicine; Visit Provider Family Medicine
DX: R30.0 Dysuria (principal)
CPT/HCPCS: 81001; 87086

== ENCOUNTER → 2020-09-04 17:58 | Outpatient (CLI) | payer OTHER, SELFPAY ==
[2020-09-04 20:24] LABS: Appearance Urine UA CLEAR; Bilirubin Urine UA NEGATIVE (NEGATIVE); Color Urine UA YELLOW; Glucose Urine UA NEGATIVE (Negative); Ketones Urine UA NEGATIVE (NEGATIVE); Leukocyte Esterase Urine UA NEGATIVE (NEGATIVE); Nitrite Urine UA NEGATIVE (Negative); Occult Blood Urine UA 2+ (Negative); Protein Urine UA TRACE (Negative); Urobilinogen Urine UA 0.2 E.U./dL (0.2)
[2020-09-04 20:50] LABS: pH Urine UA 7.5 (4.5-8.0)
[2020-09-04 21:00] LABS: Bacteria Urine Many (>30); Culture Indicated Urine Cult Not Indicated; RBC Urine 0-1/HPF (0-5/HPF); Squamous Epithelial Cell Urine 5-10 /HPF (0-5/HPF); WBC Urine 0-1/HPF (0-5/HPF)
== END ==
PROVIDERS: PCP Family Medicine; Visit Provider Family Medicine
DX: O26.893 Other specified pregnancy related conditions, third trimester (principal); Z3A.33 33 weeks gestation of pregnancy; R10.9 Unspecified abdominal pain
CPT/HCPCS: 81001

== ENCOUNTER → 2020-09-09 11:11 | Outpatient (CLI) | payer OTHER, SELFPAY ==
--- NOTE | 2020-09-09 11:11 | DI.US.S_ITS ---
PROCEDURE: US RENAL COMPLETE INDICATIONS: RIGHT FLANK PAIN. ?HYDRONEPHROSIS VERSUS KIDNEY STONE TECHNIQUE: Real-time scanning was performed of the kidneys and bladder, with image documentation. COMPARISON: None. FINDINGS: Kidneys: Kidneys are normal in size. Right kidney measures 12.1 cm long; left kidney measures 12.8 cm long. Right renal cortical thickness is 1.7 cm; left renal cortical thickness is 1.4 cm. Renal cortical echotexture is normal. No hydronephrosis or nephrolithiasis. No suspicious solid mass lesions. Bladder: Pre-void bladder volume is 86 mL. Post-void residual is 0 mL. Pre-void images demonstrate no intraluminal masses or stones. On pre-void images, neither of the ureteral jets are noted with color Doppler interrogation. (Of note, ureteral jets may not be detectable in up to 25% of cases due to insufficient differences in specific gravity between ureteral and bladder urine). Miscellaneous: No free pelvic fluid. The patient is , with a measured heart rate of 171 beats per minute. IMPRESSION: No hydronephrosis or stones are seen. Dictated by: Matheus Ivey M.D. on 09/09/2020 at 11:26 Approved by: Matheus Ivey M.D. on 09/09/2020 at 11:27
== END ==
PROVIDERS: PCP Family Medicine; Referring Provider Family Medicine; Visit Provider Family Medicine
DX: R10.9 Unspecified abdominal pain (principal)
CPT/HCPCS: 76770

== ENCOUNTER 2020-09-13 19:21 | Outpatient (CLI) | payer OTHER, SELFPAY | END 2020-09-13 21:00 | disposition home or self-care (01) | LOC: OB 09-16 06:51 | PROVIDERS: PCP Family Medicine; Referring Provider Family Medicine; Visit Provider Family Medicine | DX: O47.03 False labor before 37 completed weeks of gestation, third trimester (principal); Z3A.34 34 weeks gestation of pregnancy | CPT/HCPCS: 59025; G0378; G0379 ==

== ENCOUNTER 2020-09-18 09:13 | Outpatient (CLI) | payer OTHER, SELFPAY | END 2020-09-18 10:00 | disposition home or self-care (01) | LOC: LABOR 10:02 → OB 09-19 10:38 | PROVIDERS: PCP Family Medicine; Referring Provider Family Medicine; Visit Provider Family Medicine | DX: O24.419 Gestational diabetes mellitus in pregnancy, unspecified control (principal); Z3A.35 35 weeks gestation of pregnancy | CPT/HCPCS: 59025; G0378; G0379 ==

== ENCOUNTER → 2020-09-25 12:16 | Outpatient (CLI) | payer OTHER, SELFPAY ==
[2020-09-26 11:29] LABS: Strep Grp B PCR POS for Grp B Strep
== END ==
PROVIDERS: PCP Family Medicine; Visit Provider Family Medicine
DX: Z34.03 Encounter for supervision of normal first pregnancy, third trimester (principal); Z3A.36 36 weeks gestation of pregnancy
CPT/HCPCS: 87653

== ENCOUNTER 2020-09-25 12:22 | Outpatient (CLI) | payer OTHER, SELFPAY | END 2020-09-25 13:14 | disposition home or self-care (01) | LOC: LABOR 12:30 → OB 09-26 07:18 | PROVIDERS: PCP Family Medicine; Referring Provider Family Medicine; Visit Provider Family Medicine | DX: O24.415 Gestational diabetes mellitus in pregnancy, controlled by oral hypoglycemic drugs (principal); Z3A.36 36 weeks gestation of pregnancy; O47.03 False labor before 37 completed weeks of gestation, third trimester | CPT/HCPCS: 59025; 87653; G0378; G0379 ==

== ENCOUNTER 2020-10-02 12:03 | Outpatient (CLI) | payer OTHER, SELFPAY | END 2020-10-02 13:20 | disposition home or self-care (01) | LOC: LABOR 12:53 → OB 10-03 06:54 | PROVIDERS: PCP Family Medicine; Referring Provider Family Medicine; Visit Provider Family Medicine | DX: Z03.71 Encounter for suspected problem with amniotic cavity and membrane ruled out (principal); Z3A.37 37 weeks gestation of pregnancy | CPT/HCPCS: 59025; G0378; G0379 ==

== ENCOUNTER → 2020-10-03 14:20 | Outpatient (CLI) | payer OTHER, SELFPAY ==
--- NOTE | 2020-10-03 14:21 | DI.US.S_ITS ---
PROCEDURE: US OB LIMITED INDICATIONS: EFW; YOMAIRA OUTSIDE/PRIOR DATING DATA: Last menstrual period (LMP): 12/15/2019. LMP-based estimated date of delivery (NEELAM): 09/20/2020 . First dating scan (date and location): 05/23/2020 . Estimated date of delivery (NEELAM) from first dating scan: 10/16/2020 . TECHNIQUE: Real-time scanning was performed of the fetus, with image documentation and biometric measurements. Endovaginal scanning: No COMPARISON: [facility], OB LIMITED, 08/21/2020, 15:41. FINDINGS: General: A single living intrauterine gestation is present. Presentation: Vertex. Placenta: Placental position is anterior , without previa. Amniotic fluid index: 21.4 cm, normal range is 5-24 cm. heart rate: 157 beats per minute. Maternal cervical canal: Not well seen. biometrics: Biparietal diameter: 38 weeks 6 days Head circumference: 37 weeks Abdominal circumference: 39 weeks 2 days Femur length: 39 weeks 2 days Estimated gestational age from initial scan: 38 weeks 1 day Composite gestational age from present scan: 39 weeks 1 day Estimated weight and percentile: 3702 g; 85th percentile Measurement variability for biometric dating: +/- 7 days from 14 weeks to 15 weeks 6 days gestation, +/- 10 days from 16 weeks to 21 weeks 6 days gestation, +/- 2 weeks from 22 weeks to 27 weeks 6 days gestation, +/- 3 weeks for 28 weeks gestation or later. weight reference: 4500 g or EFW >90/95% is considered macrosomia or large for gestational age. EFW <10% is small for gestational age. EFW 5% or less is considered intra-uterine growth restriction. Other: Not applicable. IMPRESSION: Single living IUP redemonstrated and interval growth is upper limits of normal. Dictated by: Husam Ponce [facility] Interpreted: Gume Hoyos MD on 10/03/2020 at 16:21 Transcribed by: BERNARDO on 10/03/2020 at 16:22 Approved by: Gume Hoyos M.D. on 10/03/2020 at 16:32
== END ==
PROVIDERS: PCP Family Medicine; Referring Provider Family Medicine; Visit Provider Family Medicine
DX: O24.419 Gestational diabetes mellitus in pregnancy, unspecified control (principal); Z3A.39 39 weeks gestation of pregnancy
CPT/HCPCS: 76815

== ENCOUNTER 2020-10-08 15:40 | Outpatient (CLI) | payer OTHER, SELFPAY | END 2020-10-08 17:25 | disposition home or self-care (01) | LOC: LABOR 16:30 → OB 10-09 07:38 | PROVIDERS: PCP Family Medicine; Referring Provider Family Medicine; Visit Provider Family Medicine | DX: O24.419 Gestational diabetes mellitus in pregnancy, unspecified control (principal); Z3A.38 38 weeks gestation of pregnancy | CPT/HCPCS: 59025; G0378; G0379 ==

== ENCOUNTER 2020-10-10 11:59 | Observation (INO) | payer OTHER, SELFPAY | END 2020-10-10 13:07 | disposition home or self-care (01) | PROVIDERS: Admitting Provider Family Medicine; PCP Family Medicine; Referring Provider Family Medicine; Visit Provider Family Medicine | DX: O47.1 False labor at or after 37 completed weeks of gestation (principal); O24.415 Gestational diabetes mellitus in pregnancy, controlled by oral hypoglycemic drugs; Z3A.38 38 weeks gestation of pregnancy | CPT/HCPCS: 59025; 59050; G0378; G0379 ==

== ENCOUNTER 2020-10-12 07:50 | Observation (INO) | payer OTHER, SELFPAY ==
--- NOTE | 2020-10-12 09:56 | P.TNLD_ITS ---
Visit Information Visit Information Date of evaluation: 10/12/20 Primary OB Provider: Giovanni Griffin On-call OB Provider: Kae Lopez Reason for Evaluation: Yes rule out labor Comments/Additional reasons for admission: Patient came in complaining of contractions though not particularly painful. Denied leaking or bleeding and reported good movement. Vital Signs Vital Signs: Blood pressure 121/76 heart rate 82 PFSH Medical History (Updated 09/04/20 @ 16:46 by Giovanni Griffin MD) Allergic reaction Anterior epistaxis Asthma Concussion (~10/2016) Constipation Eczema Fracture, finger, multiple sites (~2018) Headache Heart murmur (~2015) History of migraine Irregular menstrual cycle Kidney stone (~10/2018) Post-concussion headache Surgical History (Updated 05/01/20 @ 14:27 by Liz Talavera, VITA) No significant past surgical history [place] teeth extracted (~2016) Family History (Updated 05/01/20 @ 14:41 by Liz Talavera RN) Brother Age: 21 Asthma Father Age: 49 Hyperlipidemia Diabetes mellitus Sister Age: 14 Asthma GERD (gastroesophageal reflux disease) History of gastrointestinal surgery Mother No problems noted. Grandmother Diabetes mellitus Grandfather Status post cardiac surgery Family estrangement Grandmother Diabetes mellitus Grandfather Status post cardiac surgery Asthma Brother Age: 21 Asthma Epileptic seizures Allergic eczema Egg allergy Sister Age: 10 Asthma Febrile seizures Social History marital status: household members: spouse lives independently: No caregiver/support person: No housing: house pets and animals: Yes (1 dog: safe) education level: college occupational status: employed current occupational exposures/hazards: No special dominik needs: No seatbelt use: always Smoking Status: Never smoker second hand exposure: No alcohol intake: former substance use type: does not use during the past year weight has: remained stable well-balanced diet: daily or most days caffeine: Yes (aware of 1 cup/day. ) Type(s) of exercise: normal ROM and activity frequency: does not exercise Evaluation Evaluation Baseline heart rate: 140 Variability: Moderate (11-25) monitor accelerations: Present Monitor Decelerations: Absent Contraction Frequency (minutes): 4 Uterine Contraction Intensity: Mild Category of Tracing: Reactive Cervical dilation (cm): 3 Cervical effacement (%): 85 station: -4 Diagnosis, Plan/Disposition Plan/Disposition Plan: 25-year-old at 38 weeks and 5 days with regular contractions. Initial exam by RN was /high. Patient walked for an hour and returned to the center. Cervical exam was unchanged. Patient was jonathon though not painfully. NST reactive. She was advised to return for regular painful contractions or leaking of fluid. She is scheduled for induction in 3 days. OB Disposition: home
== END 2020-10-12 10:07 | disposition home or self-care (01) ==
LOC: LABOR 07:51
PROVIDERS: Admitting Provider Family Medicine; PCP Family Medicine; Referring Provider Family Medicine; Visit Provider Family Medicine
DX: O47.1 False labor at or after 37 completed weeks of gestation (principal); O24.415 Gestational diabetes mellitus in pregnancy, controlled by oral hypoglycemic drugs; Z3A.38 38 weeks gestation of pregnancy
CPT/HCPCS: 59025; G0378; G0379

== ENCOUNTER 2020-10-12 20:21 | Inpatient (IN) | payer OTHER, SELFPAY ==
[2020-10-12 22:52] LABS: Add Manual Diff / Slide Review NO; Basophils Absolute Auto 0 /uL (0-100); Basophils Percent Auto 0.4 % (0-2); Eosinophils Absolute Auto 300 /uL (0-450); Eosinophils Percent Auto 2.5 % (2-4); Hematocrit 35.3 % (36-46); Hemoglobin 11.5 g/dL (12.0-16.0); Lymphocytes Absolute Auto 2800 /uL (1100-4500); Lymphocytes Percent Auto 24.5 % (25-40); Mean Corpuscular HGB Conc 32.5 % (30-36); Mean Corpuscular Hemoglobin 26.7 PG (26-34); Mean Corpuscular Volume 82.2 fL (80-100); Monocytes Absolute Auto 1000 /uL (0-900); Monocytes Percent Auto 8.5 % (3-14); Neutrophils Absolute Auto 7400 /uL (1500-7000); Neutrophils Percent Auto 64.1 % (50-75); Platelet Count 294 X10^3/uL (150-400); Red Blood Cell Count 4.29 X10^6/uL (4.0-5.2); Red Cell Distribution Width 16.4 % (11.6-14.8); White Blood Cell Count 11.5 X10^3/uL (4.5-11.0)
[2020-10-12 23:00] LABS: Aspartate Aminotransferase 21 IU/L (14-36); Blood Urea Nitrogen 13 mg/dL (7-17); Estimated Glomerular Filt Rate > 60.0 mL/min (>60); Uric Acid 6.5 mg/dL (2.5-6.2)
--- NOTE | 2020-10-13 08:56 | PM.OBHP.1 ---
OB HPI Date/Time Date of admission: 10/13/20 Date Patient Seen: 10/13/20 Time Patient Seen: 08:30 History of Present Condition Chief complaint: : 1 Para: 0 Estimated Date of Delivery: 10/21/20 Estimated Gestational Age (weeks): 38w6d Narrative: Kaleigh Frye is a 25 year old at 38 weeks and 6 days gestation. She came in overnight for labor check and was found to be hypertensive. Highest blood pressure was 161/100 though most in the 140s over 80s to 90s. She denies headache, vision changes, abdominal pain. Legs have been swollen for days. She has been in and out of the center daily for labor checks. She reports frequent contractions but denies bleeding, leaking of fluid or decreased movement. She started her on metformin for metabolic syndrome or prediabetes. She then transferred care to Dr. Griffin. Patient states she stopped metformin several weeks ago because she was told she no longer needed to take it. She does not believe she was ever diagnosed with gestational diabetes. A1c was 5.5 during the . She did not do a glucose tolerance test. She takes levothyroxine for hypothyroidism. TSH has been with normal this . Last ultrasound estimated weight was 3700 g at 37 weeks, eighty-fifth percentile. YOMAIRA was 21. Indications Indication for induction OB: medical complication (Hypertension) History of Present care: good care, initiated at week # (4), number of visits (16) and pounds weight gain (75) Dating criteria: based on 1st trimester US only Ultrasounds: normal mid trimester US Obstetrical complications: gestational diabetes (Probable) Medical complications: other (Morbid obesity) Preadmission Labs Blood type: O (+) positive -: Antibody screen: negative, GBS status: positive, HBsAG: negative, HIV: negative and RPR/VDLR: negative -: Chlamydia screen: not detected -: Rubella: not immune HCT: 35.3 Urine: Negative Evaluation Evaluation Baseline heart rate: 140 Variability: Moderate (11-25) monitor accelerations: Present Monitor Decelerations: Absent Category of Tracing: Reactive Cervical dilation (cm): 4 Cervical effacement (%): 100 station: -4 Laboratory results: Laboratory Tests 10/12/20 10/12/20 10/12/20 22:45 22:45 22:45 WBC 11.5 H RBC 4.29 Hgb 11.5 L Hct 35.3 L MCV 82.2 MCH 26.7 MCHC 32.5 RDW 16.4 H Plt Count 294 Neut % (Auto) 64.1 Lymph % (Auto) 24.5 L Rankin % (Auto) 8.5 Eos % (Auto) 2.5 Baso % (Auto) 0.4 Neut # (Auto) 7400 H Lymph # (Auto) 2800 Rankin # (Auto) 1000 H Eos # (Auto) 300 Baso # (Auto) 0 BUN 13 Creatinine 0.52 Estimated GFR > 60.0 BUN/Creatinine Ratio 25.0 H Uric Acid 6.5 H AST 21 Blood Type O Positive Antibody Screen Negative [facility] Medical History Allergic reaction Anterior epistaxis Asthma Concussion (~10/2016) Constipation Eczema Fracture, finger, multiple sites (~2018) Headache Heart murmur (~2015) History of migraine Irregular menstrual cycle Kidney stone (~10/2018) Post-concussion headache Surgical History No significant past surgical history [place] teeth extracted (~2016) Family History Brother Age: 21 Asthma Father Age: 49 Hyperlipidemia Diabetes mellitus Sister Age: 14 Asthma GERD (gastroesophageal reflux disease) History of gastrointestinal surgery Mother No problems noted. Grandmother Diabetes mellitus Grandfather Status post cardiac surgery Family estrangement Grandmother Diabetes mellitus Grandfather Status post cardiac surgery Asthma Brother Age: 21 Asthma Epileptic seizures Allergic eczema Egg allergy Sister Age: 10 Asthma Febrile seizures Social History marital status: household members: spouse lives independently: No caregiver/support person: No housing: house pets and animals: Yes (1 dog: safe) education level: college occupational status: employed current occupational exposures/hazards: No special dominik needs: No seatbelt use: always Smoking Status: Never smoker second hand exposure: No alcohol intake: former substance use type: does not use during the past year weight has: remained stable well-balanced diet: daily or most days caffeine: Yes (aware of 1 cup/day. ) Type(s) of exercise: normal ROM and activity frequency: does not exercise Meds Home Medications and Allergies Home Medications Medication Instructions Recorded Confirmed Type cetirizine 20 mg PO QDAYP PRN #0 05/15/16 10/09/20 History epinephrine 0.3 mg IM PRN PRN #1 syr 04/08/17 10/09/20 Rx fluticasone propionate 1 spray 03/24/18 10/09/20 History albuterol sulfate 90 mcg/actuation 2 puff INHALATION Q4-6H PRN 05/01/20 10/09/20 History aerosol inhaler folic acid 400 mcg tablet 0.4 mg PO DAILY 05/01/20 10/09/20 History levothyroxine 50 mcg capsule 50 mcg PO DAILY 05/01/20 10/09/20 History metformin 500 mg tablet 500 mg PO BID 05/01/20 10/09/20 History prenat.vits,brock,fqp-laqa-nkkkf 1 tab PO DAILY 05/01/20 10/09/20 History ergocalciferol (vitamin D2) 1,250 1,250 mcg PO QWEEK 05/08/20 10/09/20 History mcg (50,000 unit) capsule Allergies Allergy/AdvReac Type Severity Reaction Status Date / Time penicillin G [PENICILLIN G] Allergy Severe rash Verified 10/09/20 11:30 wheat [WHEAT] Allergy Severe Anaphylactic Verified 10/09/20 11:30 reaction, has EpiPen allergy shot Allergy Severe Swelling Uncoded 10/09/20 11:30 of tongue, throat. Review of Systems Review of Systems ROS: Yes All systems reviewed with the patient and are negative except as otherwise documented Exam Vital Signs (past 8 hours): Blood pressure 143/74 heart rate 85 Const General: healthy appearing and comfortable [facility] Head: normal to inspection Ears: hearing grossly normal bilaterally Nose: external nose normal Face and sinus: normal facial exam Mouth: oral mucosae normal Eyes General: appearance normal, both eyes and all related structures Neck Neck: normal visual inspection Resp Effort & Inspection: normal respiratory effort Auscultation: clear to auscultation bilaterally Cardio Rate: regular rate Rhythm: regular rhythm Heart Sounds: no murmurs GI Other: Gravid External Female Exam: normal external appearance Manual OB Exam: dilated 4, effaced fully and station (No palpable presenting part though vertex on ultrasound, tense bulging bag ) high Presentation: vertex Estimated Weight (lbs): 8 Back/Spine/Pelvis Back: normal to inspection Skin General: no rashes or lesions noted Extrem General: normal to inspection and edema (1+ bilaterally) Objective Labs Result Diagrams: 10/12/20 22:45 10/12/20 22:45 Labs: Laboratory Results - last 24 hr 10/12/20 10/12/20 10/12/20 22:45 22:45 22:45 WBC 11.5 H RBC 4.29 Hgb 11.5 L Hct 35.3 L MCV 82.2 MCH 26.7 MCHC 32.5 RDW 16.4 H Plt Count 294 Neut % (Auto) 64.1 Lymph % (Auto) 24.5 L Rankin % (Auto) 8.5 Eos % (Auto) 2.5 Baso % (Auto) 0.4 Neut # (Auto) 7400 H Lymph # (Auto) 2800 Rankin # (Auto) 1000 H Eos # (Auto) 300 Baso # (Auto) 0 BUN 13 Creatinine 0.52 Estimated GFR > 60.0 BUN/Creatinine Ratio 25.0 H Uric Acid 6.5 H AST 21 Blood Type O Positive Antibody Screen Negative Assessment and Plan Assessment and Plan Assessment and Plan narrative: Patient is a 25-year-old at 38 weeks and 6 days gestation with gestational hypertension versus preeclampsia. She came in last night for a labor check and was found to be hypertensive. Platelets, AST and creatinine all normal however uric acid was elevated at 6.5. Urine microalbumin creatinine is pending. She denies symptoms of preeclampsia but does have edema on exam. Overnight blood pressures remained elevated though not severe range. Most were in the 140s over the 70s to 90s. She is scheduled for induction in several days due to concern for macrosomia. She was initially on metformin at the beginning of her by a previous OB for metabolic syndrome however per patient, she was told to stop the metformin. An A1c during the was 5.5 though she did not have a glucose tolerance test or blood sugar monitoring at any point in a to determine if there was development of gestational diabetes. This morning she remains hypertensive though asymptomatic. She is feeling occasional contractions. NST is reactive. Cervix is quite favorable at 4/100% with a bulging bag though fetus remains high in the pelvis. Given that she is beyond 38 weeks gestation with at least gestational hypertension and perhaps preeclampsia, she will be admitted to the hospital. The center is quite busy at the moment so will hold off on starting induction for now. We discussed the increased risk of delivery given suspected macrosomia as well as very high station. She is aware and has had this conversation with Dr. Griffin already. Discussed case with Dr. Jordan given multiple risk factors. Plan for today will be to repeat preeclampsia labs and get a growth ultrasound for estimated weight as well as abdominal circumference and head circumference. Continue serial blood pressures as well as intermittent monitoring. Given several other events in the center today, patient will likely not be able to start induction and till tomorrow morning. She is GBS positive with history of hives to penicillin. Will plan to give clindamycin for GBS prophylaxis.
--- NOTE | 2020-10-13 08:57 | DI.US.S_ITS ---
PROCEDURE: US OB LIMITED INDICATIONS: EFW; LGA OUTSIDE/PRIOR DATING DATA: Last menstrual period (LMP): 12/15/19. LMP-based estimated date of delivery (NEELAM): 09/20/20 First dating scan (date and location): 05/23/20 Estimated date of delivery (NEELAM) from first dating scan: 10/16/20 TECHNIQUE: Real-time scanning was performed of the fetus, with image documentation. Endovaginal scanning: Not needed COMPARISON: [facility], OB LIMITED, 10/03/2020, 14:27. [facility], OB LIMITED, 08/21/2020, 15:41. FINDINGS: A single living intrauterine gestation is present. Presentation: Vertex Placenta: Placental position is anterior , without previa. Amniotic fluid index: 19.6 cm, normal range is 5-24 cm. heart rate: 145 beats per minute. Maternal cervical canal not well seen due vertex presentation and late gestational age. Estimated gestational age from initial scan: 39 weeks 4 days Note: biometry as follows: BPD 9.3 cm correlates with a gestational age of 37 weeks 6 days. Head circumference 33.1 cm correlates with 37 weeks 5 days. Abdominal circumference of 35 0.4 cm correlates with 39 weeks 2 days gestational age. Femur length of 7.7 cm correlates with 39 weeks 1 day. Composite gestational age therefore is 38 weeks 4 days. IMPRESSION: Appropriate interval growth, current estimated weight is 3625 g, at the 57th percentile for gestational age. Amniotic fluid volume is 19.6 cm, within normal range. The delivery date is projected to be centered on 10/16/20 from 1st OB ultrasound. Dictated by: Gume Hoyos M.D. on 10/13/2020 at 9:53 Approved by: Gume Hoyos M.D. on 10/13/2020 at 9:57
[2020-10-13 10:03] LABS: Creatinine Urine Random 157.5 mg/dL
[2020-10-13 10:04] LABS: Appearance Urine UA CLEAR; Bilirubin Urine UA NEGATIVE (NEGATIVE); Color Urine UA YELLOW; Glucose Urine UA NEGATIVE (Negative); Ketones Urine UA NEGATIVE (NEGATIVE); Leukocyte Esterase Urine UA NEGATIVE (NEGATIVE); Nitrite Urine UA NEGATIVE (Negative); Occult Blood Urine UA 2+ (Negative); Protein Urine UA 3+ (Negative); Specific Gravity Urine UA 1.025 (1.000-1.035); Urobilinogen Urine UA 0.2 E.U./dL (0.2)
[2020-10-13 10:45] LABS: Amorphous Sediment Urine 1+; Bacteria Urine Moderate (10-30); Culture Indicated Urine Specimen Cultured; Hyaline Casts Urine 1-5/LPF; Mucus Urine 1+ (Negative); RBC Urine 5-10/HPF (0-5/HPF); Squamous Epithelial Cell Urine 5-10 /HPF (0-5/HPF); WBC Urine 10-30/HPF (0-5/HPF)
[2020-10-13 12:17] LABS: Microalbumi Creatinin Ratio Ur 4228.5 ug/mg CR (<30)
[2020-10-13 12:44] LABS: Add Manual Diff / Slide Review NO; Basophils Absolute Auto 100 /uL (0-100); Basophils Percent Auto 0.6 % (0-2); Eosinophils Absolute Auto 200 /uL (0-450); Eosinophils Percent Auto 1.7 % (2-4); Hematocrit 34.9 % (36-46); Hemoglobin 11.5 g/dL (12.0-16.0); Lymphocytes Absolute Auto 2000 /uL (1100-4500); Lymphocytes Percent Auto 21.5 % (25-40); Mean Corpuscular HGB Conc 32.9 % (30-36); Mean Corpuscular Hemoglobin 27.1 PG (26-34); Mean Corpuscular Volume 82.5 fL (80-100); Monocytes Absolute Auto 600 /uL (0-900); Neutrophils Absolute Auto 6500 /uL (1500-7000); Neutrophils Percent Auto 70.2 % (50-75); Platelet Count 282 X10^3/uL (150-400); Red Blood Cell Count 4.22 X10^6/uL (4.0-5.2); Red Cell Distribution Width 16.9 % (11.6-14.8); White Blood Cell Count 9.3 X10^3/uL (4.5-11.0)
[2020-10-13 13:40] LABS: Alanine Aminotransferase 14 IU/L (<35); Albumin 2.4 g/dL (3.5-5.0); Albumin Globulin Ratio 0.9 (1.0-2.8); Alkaline Phosphatase 162 U/L (38-126); Aspartate Aminotransferase 23 IU/L (14-36); Bilirubin Total 0.1 mg/dL (0.2-1.3); Blood Urea Nitrogen 11 mg/dL (7-17); Calcium 8.7 mg/dL (8.4-10.2); Carbon Dioxide 21 mmol/L (22-32); Chloride 107 mmol/L (98-107); Estimated Glomerular Filt Rate > 60.0 mL/min (>60); Globulin 2.8 g/dL (1.7-4.1); Glucose 123 mg/dL (70-100); HEMOLYSIS < 15 (0-50); Potassium 4.1 mmol/L (3.4-5.1); Sodium 131 mmol/L (137-145); Total Protein 5.2 g/dL (6.3-8.2)
[2020-10-13 14:14] LABS: COVID19 - ADMIT (NP swab/PCR) Negative (Negative)
--- NOTE | 2020-10-13 15:33 | PM.OBPNLAB ---
Date/Time Date Patient Seen: 10/13/20 Time Patient Seen: 15:15 Pain Control Comments: Patient has been resting most of the day. She feels contractions are more frequent and getting a bit stronger though still bearable. Good movement and no bleeding. She has a slight headache but denies vision changes or abdominal pain. Edema is about the same. Status status: Category l Heart Rate Baseline: 135 Monitor Accelerations: Present Monitor Decelerations: Absent Assessment and Plan Assessment: other Comments: Patient is a 25-year-old at 38 weeks and 6 days gestation admitted with preeclampsia based on hypertension and proteinuria. Blood pressures have been elevated though not severe range. She does report a slight headache but denies vision changes or abdominal pain. Edema is stable. Last blood pressure was 131/63. She has been monitored throughout the day but not started on induction due to staffing. Given highly favorable cervix and bulging bag, Dr. Jordan plans to come this evening for high amniotomy. Patient is aware of the increased risk of given high station as well as suspected macrosomia. Plan for expectant management after amniotomy. Estimated weight on ultrasound today was 3625 g which is fifty-seventh percentile. Abdominal circumference measures at 39 weeks and 2 days with head circumference measuring at 37 weeks and 5 days. Given increased abdominal circumference to head circumference, patient is at risk of shoulder dystocia however fetus appears to be measuring average rather than macrosomic. Discussed with patient that ultrasound can be off by as much as a kg but it is the best we have for an estimate at this time.
[2020-10-13] MEDS: ACETAMINOPHEN 325 MG TABLET 650 MG PO (15:47)
[2020-10-13] MEDS: CEFAZOLIN 1 GM VIAL 2 GM IV (17:31)
[2020-10-13 18:00] LABS: Add Manual Diff / Slide Review NO; Basophils Absolute Auto 100 /uL (0-100); Basophils Percent Auto 0.6 % (0-2); Eosinophils Absolute Auto 200 /uL (0-450); Eosinophils Percent Auto 2.4 % (2-4); Hematocrit 34.1 % (36-46); Hemoglobin 11.3 g/dL (12.0-16.0); Lymphocytes Absolute Auto 2200 /uL (1100-4500); Lymphocytes Percent Auto 22.8 % (25-40); Mean Corpuscular HGB Conc 33.1 % (30-36); Mean Corpuscular Hemoglobin 27.4 PG (26-34); Monocytes Absolute Auto 900 /uL (0-900); Monocytes Percent Auto 9.4 % (3-14); Neutrophils Absolute Auto 6200 /uL (1500-7000); Neutrophils Percent Auto 64.8 % (50-75); Platelet Count 278 X10^3/uL (150-400); Red Blood Cell Count 4.11 X10^6/uL (4.0-5.2); Red Cell Distribution Width 17.1 % (11.6-14.8); White Blood Cell Count 9.6 X10^3/uL (4.5-11.0)
[2020-10-14] MEDS: CEFAZOLIN 1 GM VIAL IV ×2 (01:00→09:08)
[2020-10-14] MEDS: OXYTOCIN PREMIX 30 UNIT/500 ML PLAST..BAG IV (03:29)
--- NOTE | 2020-10-14 07:37 | PM.OBPNLAB ---
Date/Time Date Patient Seen: 10/14/20 Time Patient Seen: 07:37 Pain Control Pain control: epidural Comments: Patient received an epidural early this morning. Comfortable. Pelvic Exam Dilation (cm): 10 Effacement (%): 100 station: 0 Amniotic membrane status: Ruptured Status status: Category l Heart Rate Baseline: 140 Monitor Accelerations: Present Monitor Decelerations: Absent Monitor Variability: Moderate Assessment and Plan Assessment: induction ongoing Comments: New patient care taken over from weekend on-call OB practitioner. Strip was reviewed. Care discussed with on-call provider and nursing staff this morning. Current care plan. Patient on Pitocin. Last cervical exam by nurse was approximately 3:00 a.m. this morning after epidural. Was 6 cm with a bulging bag. My examination this morning shows complete 0 station. Apparently looks like she has ruptured sometime in the night. She is comfortable with her epidural and was able to sleep. Blood pressures have still been borderline on the high range. Has not received antihypertensive medication. No problems with headache blurry vision right upper quadrant pain. Preeclamptic lab work results were reviewed. Patient has proteinuria and mildly elevated uric acid. Reflexes are normal this morning. Patient has received now multiple courses of antibiotic for GBS positive status. heart tracing is category 1 category 2 mainly category 1. Patient blood pressure looks good right now she is afebrile she is comfortable. Discussed with patient and fair care plan. Now that she is complete. She was get some rest. We discussed about pushing. Baby's at 0 station. Will see how effective pusher she is anticipating a large baby. Discussed about the that if there is slow transition time from pushing that the operative delivery would be likely.
[2020-10-14] MEDS: FENT 2MCG/ML BUPIV 0.125% EPI 200 MCG/100 ML PLAST..BAG 10 MCG EPIDURAL (08:55)
--- NOTE | 2020-10-14 10:17 | PM.OBPNLAB ---
Date/Time Date Patient Seen: 10/14/20 Time Patient Seen: 10:17 Pelvic Exam Dilation (cm): 10 Effacement (%): 100 station: +2 Amniotic membrane status: Ruptured Status status: Category ll Heart Rate Baseline: 145 Monitor Accelerations: Present Monitor Decelerations: Early Monitor Variability: Moderate Assessment and Plan Assessment: active labor Comments: Patient pushing out proximally 1 it hour. Plus two station starting to see baby's head pushing. Mom pushing slowly but effectively. Continue present management at this point. Started pushing at 9:30 a.m.. Baby's heart rates doing great category 2 tracing with some dcells early with head compression.
--- NOTE | 2020-10-14 12:01 | PM.PROC.1 ---
Procedures Date/Time Date of procedure: 10/14/20 Time of procedure: 11:10 General Procedure description: Delivery of viable male Stage I of labor approximately 12 hours. Patient was admitted to the floor with complaints of jonathon uncomfortableness concerns about leaking of fluid. Patient was seen and evaluated examined cervix was unchanged after previous visits to labor and delivery floor and office. But was found to have mildly elevated blood pressure due to this patient was kept overnight and monitored. Blood pressure was high. Patient had evaluation of preeclamptic blood work and urinalysis patient was shown to have mildly elevated uric acid protein urea. Blood pressures were hovering 130s to 150s. Patient was asymptomatic from headache right upper quadrant pain blurry vision she did have some swelling. To this patient was admitted to the labor and delivery floor. Patient was on continuous monitoring. She had labor slow progression due to significant delivery activity in the center. Patient was then getting uncomfortable with contractions with a slow start. She was given IV antibiotics. She became uncomfortable when she was 6 cm received an epidural and low-dose Pitocin was started. Patient progressed from 6 cm after sleeping with an epidural to complete in about 5 hours. During stage I of labor she had category 1 and STs. She was afebrile. Patient received multiple doses of cephalosporin antibiotic for GBS prevention. Stage II of labor approximately 1 hour and 45 minutes. Patient pushed to deliver a viable male infant. Baby made good descent through the canal. Baby's heart tone tracing during stage II of labor were category 1 and category 2. Baby was delivered in the occiput anterior position. At the delivery of the head there was no nuchal cord. It baby delivered spontaneously afterwards baby was placed on mother's abdomen. Delayed cord clamping was then done. Cord was then cut and transected. Baby was resting comfortably afterwards. Baby was delivered without the use of a VAC and there were no concerns with shoulders. Stage III of labor delivery of intact placenta proxy submit Cat 15 minutes later. Patient had a repair of second-degree midline tear with the 3-0 chromic suture in lidocaine. She also had a left labial tear that was repaired with 3-0 chromic stitch. Patient had some mild uterine atony and was given IM Methergine injection and Pitocin 30 units IM was ran in through the bag. After repair of her vaginal and left labial lacerations. Inspection of her vagina and cervix showed no other lacerations baby was resting comfortably estimated blood loss was 500 cc.
[2020-10-14] MEDS: IBUPROFEN 600 MG TABLET PO ×2 (13:23→21:15)
[2020-10-14 14:24] VITALS: BP 121/76
[2020-10-14] MEDS: ONDANSETRON 4 MG/2 ML INJ IV (14:44)
[2020-10-14] MEDS: DERMOPLAST SPRAY 20% 60 ML 1 SPRAY TOP (14:45)
[2020-10-14] MEDS: LABETALOL 100 MG TABLET 200 MG PO (21:00)
[2020-10-14] MEDS: ACETAMINOPHEN 325 MG TABLET 650 MG PO (21:15)
[2020-10-15 06:30] LABS: Hematocrit 25.3 % (36-46); Hemoglobin 8.4 g/dL (12.0-16.0)
--- NOTE | 2020-10-15 06:59 | PM.PN.1 ---
Subjective Subjective Date Patient Seen: 10/15/20 Time Patient Seen: 06:59 Interval history: Patient doing well this morning. No right upper quadrant pain no blurry vision no significant headaches. Some mild swelling. Blood pressure is doing good with her labetalol. Mom's struggling a little bit with breast-feeding. Pain is well controlled with ibuprofen and Tylenol. Bleeding is not too bad patient states the nursing staff agrees. She has had good urination. She is up ambulating now. She is tolerating her diet. Exam Vital Signs (past 8 hours): General: Alert no apparent distress. Affect is appropriate. Meena it is uncomfortable. HEENT: Neck is supple without lymphadenopathy pupils equal round and reactive. Cardio: S1-S2 regular rate and rhythm. Respiratory: Lungs clear to auscultation. Abdomen: Uterus firm. Incision clean dry and intact. Extremities: Normal deep tendon reflexes trace edema. Objective Labs Result Diagrams: 10/15/20 06:20 10/13/20 12:35 Labs: Laboratory Results - last 24 hr 10/15/20 06:20 Hgb 8.4 L Hct 25.3 L PFSH Medical History Allergic reaction Anterior epistaxis Asthma Concussion (~10/2016) Constipation Eczema Fracture, finger, multiple sites (~2018) Headache Heart murmur (~2015) History of migraine Irregular menstrual cycle Kidney stone (~10/2018) Post-concussion headache Surgical History No significant past surgical history [place] teeth extracted (~2016) Family History Brother Age: 21 Asthma Father Age: 49 Hyperlipidemia Diabetes mellitus Sister Age: 14 Asthma GERD (gastroesophageal reflux disease) History of gastrointestinal surgery Mother No problems noted. Grandmother Diabetes mellitus Grandfather Status post cardiac surgery Family estrangement Grandmother Diabetes mellitus Grandfather Status post cardiac surgery Asthma Brother Age: 21 Asthma Epileptic seizures Allergic eczema Egg allergy Sister Age: 10 Asthma Febrile seizures Social History marital status: household members: spouse lives independently: No caregiver/support person: No housing: house pets and animals: Yes (1 dog: safe) education level: college occupational status: employed current occupational exposures/hazards: No special dominik needs: No seatbelt use: always Smoking Status: Never smoker second hand exposure: No alcohol intake: former substance use type: does not use during the past year weight has: remained stable well-balanced diet: daily or most days caffeine: Yes (aware of 1 cup/day. ) Type(s) of exercise: normal ROM and activity frequency: does not exercise Assessment & Plan Assessment & Plan narrative: day 1. Pain is well controlled with oral pain medication she is tolerating diet she is ambulating. Still having some difficulty with breast-feeding. Normal urination and bowel movement. Patient has some mild perineal pain. Hemoglobin is 8.4. Anticipate discharge tomorrow.
[2020-10-15] MEDS: PRENATAL VIT,CALC/IRON/FOLIC 1 TABLET 1 TAB PO (10:02)
[2020-10-15] MEDS: IBUPROFEN 600 MG TABLET PO ×3 (10:03→23:53)
[2020-10-15] MEDS: DOCUSATE 100 MG CAPSULE PO (10:03)
[2020-10-15 12:03] VITALS: BP 121/85; PULSE 87; RESP 16; TEMP 37
[2020-10-15] MEDS: LABETALOL 100 MG TABLET 200 MG PO (21:53)
[2020-10-15] MEDS: ACETAMINOPHEN 325 MG TABLET 650 MG PO (23:53)
--- NOTE | 2020-10-16 08:04 | PM.DS.1 ---
History of Present Illness History of Present Illness Chief complaint: Discharge Providers Provider Date of admission: 10/12/20 20:21 Discharge Date: 10/16/20 Primary care physician: Giovanni Griffin MD Consults: 10/15/20 11:20 Consult to [facility] Routine Comment: Discharge provider: Giovanni Griffin MD Summary Hospital Course Discharge Diagnosis: 25-year-old G1 para 1 status post vaginal delivery Preeclampsia Post delivery anemia Hospital Course: Patient was admitted to the hospital in early labor. Patient had found to have mild elevation of her blood pressure. Proteinuria and elevated uric acid. Patient slipped labor was expedited. With Pitocin and rupture of membranes. Patient did not need labetalol hydralazine or magnesium during the labor process. Patient had category 1 category 2 tracing during labor. Patient ultimately was went to deliver a viable infant with Apgars of 8 and 9. mom did well. day 1. She was eating ambulating she was having some difficulty with breast-feeding. Had no problems with tolerating her diet. Pain was well controlled. day 2. Ambulating eating breast-feeding was going better tolerating diet. Patient was ready to go home vital signs were stable. Objective Labs Result Diagrams: 10/15/20 06:20 10/13/20 12:35 [facility] Medical History Allergic reaction Anterior epistaxis Asthma Concussion (~10/2016) Constipation Eczema Fracture, finger, multiple sites (~2018) Headache Heart murmur (~2015) History of migraine Irregular menstrual cycle Kidney stone (~10/2018) Post-concussion headache Surgical History No significant past surgical history [place] teeth extracted (~2016) Family History Brother Age: 21 Asthma Father Age: 49 Hyperlipidemia Diabetes mellitus Sister Age: 14 Asthma GERD (gastroesophageal reflux disease) History of gastrointestinal surgery Mother No problems noted. Grandmother Diabetes mellitus Grandfather Status post cardiac surgery Family estrangement Grandmother Diabetes mellitus Grandfather Status post cardiac surgery Asthma Brother Age: 21 Asthma Epileptic seizures Allergic eczema Egg allergy Sister Age: 10 Asthma Febrile seizures Social History marital status: household members: spouse lives independently: No caregiver/support person: No housing: house pets and animals: Yes (1 dog: safe) education level: college occupational status: employed current occupational exposures/hazards: No special dominik needs: No seatbelt use: always Smoking Status: Never smoker second hand exposure: No alcohol intake: former substance use type: does not use during the past year weight has: remained stable well-balanced diet: daily or most days caffeine: Yes (aware of 1 cup/day. ) Type(s) of exercise: normal ROM and activity frequency: does not exercise Discharge Plan Discharge Plan Patient Disposition: Home Discharge orders & Medications Prescriptions: New docusate sodium [DOK] 100 mg Capsule 100 mg PO DAILY Qty: 20 RF: 0 ibuprofen 600 mg Tablet 600 mg PO Q6HR PRN (Reason: Pain, Mild (1-3)) Qty: 20 RF: 0 Continued ergocalciferol (vitamin D2) 1,250 mcg (50,000 unit) capsule 1,250 mcg PO QWEEK RF: 0 cetirizine 10 MG tablet 20 mg PO QDAYP PRNQty: 0 RF: 0 epinephrine 0.3 MG/0.3 ML auto-injector 0.3 mg IM PRN PRNQty: 1 RF: 0 prenat.vits,brock,bfa-daxp-aobol Tablet 1 tab PO DAILY RF: 0 folic acid 400 mcg tablet 0.4 mg PO DAILY RF: 0 metformin 500 mg tablet 500 mg PO BID RF: 0 levothyroxine 50 mcg capsule 50 mcg PO DAILY RF: 0 albuterol sulfate 90 mcg/actuation HFA aerosol inhaler 2 puff inhalation Q4-6H PRNRF: 0 fluticasone propionate 50 mcg/actuation spray,suspension 1 spray RF: 0 Follow up/Referrals: Giovanni Griffin MD [Primary Care Provider] - Discharge Health Status Multidrug resistant organism: No MDRO Diet/Activity/Treatments Diet: Diet as Tolerated Skin/Wound/Dressing Care Report to your healthcare provider any signs of infection, such as:: chills, fever, night sweats, increased pain and unusual drainage Visit Report/Discharge Packet Visit Report Forms: Patient Portal/API, Stroke Signs & Symptoms Discharge Data Primary Care Provider: Giovanni Griffin
[2020-10-16] MEDS: PRENATAL VIT,CALC/IRON/FOLIC 1 TABLET 1 TAB PO (08:19)
[2020-10-16] MEDS: DOCUSATE 100 MG CAPSULE PO (08:19)
[2020-10-16] MEDS: LABETALOL 100 MG TABLET 200 MG PO (08:19)
[2020-10-16 09:13] VITALS: BP 121/85; PULSE 87; RESP 16; TEMP 37
== END 2020-10-16 11:46 | disposition home or self-care (01) | DRG 807 ==
PROVIDERS: Admitting Provider Family Medicine; PCP Family Medicine; Referring Provider Family Medicine; Visit Provider Family Medicine
DX: O13.4 Gestational [pregnancy-induced] hypertension without significant proteinuria, complicating childbirth (principal); Z37.0 Single live birth; O14.04 Mild to moderate pre-eclampsia, complicating childbirth; O70.1 Second degree perineal laceration during delivery; O99.824 Streptococcus B carrier state complicating childbirth; Z3A.38 38 weeks gestation of pregnancy; E66.01 Morbid (severe) obesity due to excess calories; D50.0 Iron deficiency anemia secondary to blood loss (chronic); O90.81 Anemia of the puerperium; O99.214 Obesity complicating childbirth; O99.284 Endocrine, nutritional and metabolic diseases complicating childbirth; E03.9 Hypothyroidism, unspecified; Z20.822 Contact with and (suspected) exposure to COVID-19; O47.1 False labor at or after 37 completed weeks of gestation; O24.415 Gestational diabetes mellitus in pregnancy, controlled by oral hypoglycemic drugs
CPT/HCPCS: 01967; 36415; 59025; 59050; 59400; 76815; 80053; 81001; 82043; 82570; 84450; 84550; 85014; 85018; 85025; 86850; 86900; 86901; 87086; 87635; C9803; G0378; G0379; J0690; J2405; J2590

== ENCOUNTER 2020-10-19 17:41 | Inpatient (IN) | payer OTHER, SELFPAY ==
[2020-10-19] VITALS (22 sets, daily range): BP systolic 122–165; BP diastolic 69–97; PULSE 77–107; RESP 15–18; TEMP 36.2–36.8; O2SAT 97–100; BMI 40.7
[2020-10-19] MEDS: SODIUM CHLORIDE 0.9% 1,000 ML 125 ML IV (18:11)
[2020-10-19 18:12] LABS: Add Manual Diff / Slide Review NO; Basophils Absolute Auto 0 /uL (0-100); Basophils Percent Auto 0.4 % (0-2); Eosinophils Absolute Auto 500 /uL (0-450); Eosinophils Percent Auto 5.7 % (2-4); Hematocrit 27.1 % (36-46); Lymphocytes Absolute Auto 2500 /uL (1100-4500); Lymphocytes Percent Auto 28.7 % (25-40); Mean Corpuscular HGB Conc 33.3 % (30-36); Mean Corpuscular Hemoglobin 28.1 PG (26-34); Mean Corpuscular Volume 84.4 fL (80-100); Monocytes Absolute Auto 800 /uL (0-900); Monocytes Percent Auto 8.8 % (3-14); Neutrophils Absolute Auto 5000 /uL (1500-7000); Neutrophils Percent Auto 56.4 % (50-75); Platelet Count 423 X10^3/uL (150-400); Red Blood Cell Count 3.21 X10^6/uL (4.0-5.2); Red Cell Distribution Width 17.5 % (11.6-14.8); White Blood Cell Count 8.8 X10^3/uL (4.5-11.0)
[2020-10-19 18:20] LABS: Alanine Aminotransferase 68 IU/L (<35); Albumin 3.1 g/dL (3.5-5.0); Alkaline Phosphatase 130 U/L (38-126); Aspartate Aminotransferase 51 IU/L (14-36); BUN Creatinine Ratio 29.4 (6-22); Bilirubin Total 0.1 mg/dL (0.2-1.3); Blood Urea Nitrogen 15 mg/dL (7-17); Calcium 8.6 mg/dL (8.4-10.2); Carbon Dioxide 26 mmol/L (22-32); Chloride 106 mmol/L (98-107); Estimated Glomerular Filt Rate > 60.0 mL/min (>60); Globulin 3.2 g/dL (1.7-4.1); Glucose 100 mg/dL (70-100); HEMOLYSIS < 15 (0-50); Lactate Dehydrogenase 634 U/L (313-618); Lipase 92 U/L (23-300); Potassium 4.6 mmol/L (3.4-5.1); Sodium 138 mmol/L (137-145); Total Protein 6.3 g/dL (6.3-8.2)
--- NOTE | 2020-10-19 18:23 | ED.HA ---
HPI - Headache General Chief Complaint: Headache Stated Complaint: bad headache/preeclampsia 5 days Time Seen by Provider: 10/19/20 17:59 Source: patient Mode of arrival: Ambulatory Limitations: no limitations History of Present Illness HPI Narrative: Patient is a 25-year-old G1 now P1 approximately 1 week status post vaginal delivery that was assisted with Pitocin. She states that her was uncomplicated until the very end when her blood pressure was elevated. She was not started on any antihypertensive medications. She was admitted to the hospital after spontaneous labor with then had Pitocin. Gave to a healthy boy. Is breast feeding. States that since the delivery she has had a slight headache that has worsened over the past 24 hours. Also is having some blurry vision. No abdominal pain. She states that her vaginal discharge/bleeding has improved. No diarrhea. Does have lower extremity swelling that does seem to get better and worse depending on the day over the past week. Has not tried anything for her headache prior to arrival. Related Data Home Medications Medication Instructions Recorded Confirmed cetirizine 20 mg PO QDAYP PRN #0 05/15/16 10/09/20 fluticasone propionate 1 spray 03/24/18 10/09/20 albuterol sulfate 90 mcg/actuation 2 puff INHALATION Q4-6H PRN 05/01/20 10/09/20 aerosol inhaler folic acid 400 mcg tablet 0.4 mg PO DAILY 05/01/20 10/13/20 levothyroxine 50 mcg capsule 50 mcg PO DAILY 05/01/20 10/09/20 metformin 500 mg tablet 500 mg PO BID 05/01/20 10/13/20 prenat.vits,brock,lpq-nsvc-ktzip 1 tab PO DAILY 05/01/20 10/09/20 ergocalciferol (vitamin D2) 1,250 1,250 mcg PO QWEEK 05/08/20 10/09/20 mcg (50,000 unit) capsule Previous Rx's Medication Instructions Recorded epinephrine 0.3 mg IM PRN PRN #1 syr 04/08/17 docusate sodium [DOK] 100 mg PO DAILY #20 cap 10/16/20 ibuprofen 600 mg PO Q6HR PRN #20 tab 10/16/20 Allergies Allergy/AdvReac Type Severity Reaction Status Date / Time penicillin G [PENICILLIN G] Allergy Severe rash Verified 10/19/20 17:49 wheat [WHEAT] Allergy Severe Anaphylactic Verified 10/19/20 17:49 reaction, has EpiPen allergy shot Allergy Severe Swelling Uncoded 10/19/20 17:49 of tongue, throat. Review of Systems Constitutional Constitutional: Denies fever(s) and Reports headache(s) Eyes Eyes: Reports blurry vision ENT Ears, Nose, Mouth, and Throat: Reports headache(s) Cardiovascular Cardiovascular: Denies chest pain and Denies dyspnea Respiratory Respiratory: Denies dyspnea Gastrointestinal Gastrointestinal: Denies abdominal pain, Denies nausea and Denies vomiting Genitourinary Comments: Small amount of vaginal discharge Musculoskeletal Musculoskeletal: Reports system reviewed and no additional complaints, except as documented Integumentary/Breasts Skin/Breast: Denies rash Neurologic Neurologic: Denies behavioral changes, Denies confusion and Reports headache(s) Psychiatric Psychiatric: Denies behavioral changes and Denies confusion Endocrine Endocrine: Reports system reviewed and no additional complaints, except as documented Hematologic/Lymphatic On Anticoagulants: No Allergic/Immunologic Allergic/Immunologic: Reports system reviewed and no additional complaints, except as documented Patient History Medical History Allergic reaction Anterior epistaxis Asthma Concussion (~10/2016) Constipation Eczema Fracture, finger, multiple sites (~2018) Headache Heart murmur (~2015) History of migraine Hypothyroidism (acquired) Irregular menstrual cycle Kidney stone (~10/2018) Post-concussion headache Surgical History No significant past surgical history [place] teeth extracted (~2016) Family History Brother Age: 21 Asthma Father Age: 49 Hyperlipidemia Diabetes mellitus Sister Age: 14 Asthma GERD (gastroesophageal reflux disease) History of gastrointestinal surgery Mother No problems noted. Grandmother Diabetes mellitus Grandfather Status post cardiac surgery Family estrangement Grandmother Diabetes mellitus Grandfather Status post cardiac surgery Asthma Brother Age: 21 Asthma Epileptic seizures Allergic eczema Egg allergy Sister Age: 10 Asthma Febrile seizures Social History marital status: household members: spouse lives independently: No caregiver/support person: No housing: house pets and animals: Yes (1 dog: safe) education level: college occupational status: employed current occupational exposures/hazards: No special dominik needs: No seatbelt use: always Smoking Status: Never smoker second hand exposure: No alcohol intake: former substance use type: does not use during the past year weight has: remained stable well-balanced diet: daily or most days caffeine: Yes (aware of 1 cup/day. ) Type(s) of exercise: normal ROM and activity frequency: does not exercise Smoking Status: Never smoker alcohol intake frequency: 0-2 drinks per day Substance Use Type: does not use Exam Initial Vital Signs Initial Vital Signs: Vital Signs Temperature 97.7 F 10/19/20 17:50 Pulse Rate 107 H 10/19/20 17:50 Respiratory Rate 18 10/19/20 17:50 Blood Pressure 165/97 H 10/19/20 17:50 Pulse Oximetry 100 10/19/20 17:50 Const General: cooperative and comfortable Limitations: mental status not altered HENMT Head: normal to inspection and normocephalic Eyes General: appearance normal, both eyes and all related structures Resp Effort & Inspection: normal respiratory effort Auscultation: clear to auscultation bilaterally Cardio Rate: regular rate Rhythm: regular rhythm GI Inspection: non-distended Palpation: soft and No tender Skin Lesions: no lesions Rashes: no rashes Neuro General: patient alert, patient awake and patient oriented x3 Cognition: normal cognition Speech: speech normal Extrem General: normal to inspection and edema Psych Appearance: grossly normal and well kempt Scores GCS Mallory coma scale eye opening: Spontaneous [place] coma scale verbal response: Orientated [place] coma scale motor response: Obey commands [place] coma scale total score: 15 Course Orders Ordered: ED Orders 10/19/20 17:53 Complete Blood Count AUTO DIFF Stat Comprehensive Metabolic Panel Stat Lactate Dehydrogenase Stat Lipase Stat 10/19/20 19:53 Protein Creatinine Ratio Urine Stat 10/19/20 19:55 Urinalysis and Microscopic Stat 10/19/20 20:05 COVID19 - ADMIT ([employer] swab/PCR) Stat Acetaminophen (Acetaminophen 325 Mg Tablet) 975 mg PO Q8H PRN PRN Reason: Pain, Mild (1-3) Albuterol (Albuterol Hfa Mdi 60 Puff/8 Gm Inhaler) 2 puff INH Q4H PRN PRN Reason: Wheezing Benzocaine (Dermoplast [place] 20% 60 Ml) 1 spray TOP Q4HR PRN PRN Reason: Pain, Moderate (4-6) Docusate Sodium (Docusate 100 Mg Capsule) 100 mg PO DAILY [facility] Enoxaparin Sodium (Enoxaparin 40 Mg/0.4 Ml Syringe) 40 mg SUBCUT DAILY [facility] Sodium Chloride (Normal Saline 0.9%) 1,000 mls @ 125 mls/hr IV CONT EVELYN Last Infusion: 10/19/20 21:21 Dose: 0 mls/hr Documented by: Admin: 10/19/20 18:11 Dose: 125 mls/hr Documented by: TA Magnesium Sulfate (Magnesium Sulfate) 4 gm in 100 mls @ 50 mls/hr IV NOW ONE Stop: 10/19/20 22:37 Last Infusion: 10/19/20 21:21 Dose: 0 mls/hr Documented by: ELENO Cosigned by: MARLEN Admin: 10/19/20 20:43 Dose: 50 mls/hr Documented by: ELENO Cosigned by: WILBUR Magnesium Sulfate (Magnesium Sulfate) 20 gm in 500 mls @ 50 mls/hr IV CONT [facility] Ibuprofen (Ibuprofen 400 Mg Tablet) 800 mg PO Q8HR PRN PRN Reason: pain Labetalol HCl (Labetalol 20 Mg/4 Ml Syringe) 20 mg IV Q4HR PRN PRN Reason: Hypertensive Emergency Labetalol HCl (Labetalol 100 Mg Tablet) 200 mg PO BID [facility] Levothyroxine Sodium (Levothyroxine 50 Mcg Tablet) 50 mcg PO 0600 [facility] Witch Dorothy/Glycerin (Witch Dorothy/Glycerin Pads) 1 each TOP Q30M PRN PRN Reason: Itching Discontinued Medications Labetalol HCl (Labetalol 20 Mg/4 Ml Syringe) 10 mg IV NOW ONE Stop: 10/19/20 19:42 Last Admin: 10/19/20 20:04 Dose: 10 mg Documented by: ELENO Vital Signs Vital signs: Vital Signs - 8 hr 10/19/20 17:50 10/19/20 18:19 10/19/20 18:20 Temperature 97.7 F Pulse Rate 107 H 95 H 93 H Respiratory Rate 18 Blood Pressure 165/97 H 162/96 H Pulse Oximetry 100 99 100 10/19/20 18:30 10/19/20 18:56 10/19/20 19:00 Temperature Pulse Rate 89 90 91 H Respiratory Rate Blood Pressure 145/85 H 150/82 H 136/73 Pulse Oximetry 99 100 100 10/19/20 19:20 10/19/20 19:30 10/19/20 20:00 Temperature Pulse Rate 83 82 Respiratory Rate 18 Blood Pressure 144/95 H 149/90 H 164/79 H Pulse Oximetry 98 99 10/19/20 20:03 10/19/20 20:10 10/19/20 20:20 Temperature Pulse Rate 81 82 79 Respiratory Rate 18 18 16 Blood Pressure 157/83 H 144/73 H 146/89 H Pulse Oximetry 99 98 98 10/19/20 20:37 Temperature Pulse Rate 84 Respiratory Rate Blood Pressure 139/85 Pulse Oximetry 97 MDM - Headache Lab Data Attestation: I reviewed the patient's lab results. Result diagrams: 10/19/20 17:53 10/19/20 17:53 Labs: Lab Results 10/19/20 10/19/20 10/19/20 Range/Units 17:53 17:53 17:53 WBC 8.8 (4.5-11.0) X10^3/uL RBC 3.21 L (4.0-5.2) X10^6/uL Hgb 9.0 L (12.0-16.0) g/dL Hct 27.1 L (36-46) % MCV 84.4 (80-100) fL MCH 28.1 (26-34) PG MCHC 33.3 (30-36) % RDW 17.5 H (11.6-14.8) % Plt Count 423 H (150-400) X10^3/uL Neut % (Auto) 56.4 (50-75) % Lymph % (Auto) 28.7 (25-40) % Union % (Auto) 8.8 (3-14) % Eos % (Auto) 5.7 H (2-4) % Baso % (Auto) 0.4 (0-2) % Neut # (Auto) 5000 (8284-9002) /uL Lymph # (Auto) 2500 (3845-9454) /uL [place] # (Auto) 800 (0-900) /uL Eos # (Auto) 500 H (0-450) /uL Baso # (Auto) 0 (0-100) /uL Sodium 138 (137-145) mmol/L Potassium 4.6 (3.4-5.1) mmol/L Chloride 106 (98-107) mmol/L Carbon Dioxide 26 (22-32) mmol/L BUN 15 (7-17) mg/dL Creatinine 0.51 L (0.52-1.04) mg/dL Estimated GFR > 60.0 (>60) mL/min BUN/Creatinine Ratio 29.4 H (6-22) Glucose 100 (70-100) mg/dL Calcium 8.6 (8.4-10.2) mg/dL Total Bilirubin 0.1 L (0.2-1.3) mg/dL AST 51 H (14-36) IU/L ALT 68 H (<35) IU/L Alkaline Phosphatase 130 H (38-126) U/L Lactate Dehydrogenase 634 H (313-618) U/L Total Protein 6.3 (6.3-8.2) g/dL Albumin 3.1 L (3.5-5.0) g/dL Globulin 3.2 (1.7-4.1) g/dL Albumin/Globulin Ratio 1.0 (1.0-2.8) Lipase 92 (23-300) U/L Urine Color Urine Appearance Urine pH Ur Specific [place] Urine Protein Urine Glucose (UA) Urine Ketones Urine Occult Blood Urine Nitrate Urine Bilirubin Urine Urobilinogen Ur Leukocyte Esterase Urine RBC Urine WBC Ur Squamous Epith Cells Ur Transition Epith Cell Ur Renal Epithelial Cell Calcium Oxalate Crystal Uric Acid Crystals Triple Phos Crystals Other Crystals Amorphous Sediment Urine Bacteria Hyaline Casts Granular Casts RBC Casts WBC Casts Other Casts Urine Mucus Urine Trichomonas Urine Yeast Urine Sperm Ur Culture Indicated? Micro UA Comment U Random Total Protein (0-12) mg/dL Urine Creatinine mg/dL Protein/Creatinin Ratio GRAM/24H SARS-CoV-2 (PCR) (Negative) 10/19/20 10/19/20 10/19/20 Range/Units 19:02 19:53 19:53 WBC (4.5-11.0) X10^3/uL RBC (4.0-5.2) X10^6/uL Hgb (12.0-16.0) g/dL Hct (36-46) % MCV (80-100) fL MCH (26-34) PG MCHC (30-36) % RDW (11.6-14.8) % Plt Count (150-400) X10^3/uL Neut % (Auto) (50-75) % Lymph % (Auto) (25-40) % Union % (Auto) (3-14) % Eos % (Auto) (2-4) % Baso % (Auto) (0-2) % Neut # (Auto) (7789-3606) /uL Lymph # (Auto) (0931-4393) /uL Union # (Auto) (0-900) /uL Eos # (Auto) (0-450) /uL Baso # (Auto) (0-100) /uL Sodium (137-145) mmol/L Potassium (3.4-5.1) mmol/L Chloride (98-107) mmol/L Carbon Dioxide (22-32) mmol/L BUN (7-17) mg/dL Creatinine (0.52-1.04) mg/dL Estimated GFR (>60) mL/min BUN/Creatinine Ratio (6-22) Glucose (70-100) mg/dL Calcium (8.4-10.2) mg/dL Total Bilirubin (0.2-1.3) mg/dL AST (14-36) IU/L ALT (<35) IU/L Alkaline Phosphatase (38-126) U/L Lactate Dehydrogenase (313-618) U/L Total Protein (6.3-8.2) g/dL Albumin (3.5-5.0) g/dL Globulin (1.7-4.1) g/dL Albumin/Globulin Ratio (1.0-2.8) Lipase (23-300) U/L Urine Color Cancelled Cancelled Urine Appearance Cancelled Cancelled Urine pH Cancelled Cancelled Ur Specific [place] Cancelled Cancelled Urine Protein Cancelled Cancelled Urine Glucose (UA) Cancelled Cancelled Urine Ketones Cancelled Cancelled Urine Occult Blood Cancelled Cancelled Urine Nitrate Cancelled Cancelled Urine Bilirubin Cancelled Cancelled Urine Urobilinogen Cancelled Cancelled Ur Leukocyte Esterase Cancelled Cancelled Urine RBC Cancelled Cancelled Urine WBC Cancelled Cancelled Ur Squamous Epith Cells Cancelled Cancelled Ur Transition Epith Cell Cancelled Cancelled Ur Renal Epithelial Cell Cancelled Cancelled Calcium Oxalate Crystal Cancelled Cancelled Uric Acid Crystals Cancelled Cancelled Triple Phos Crystals Cancelled Cancelled Other Crystals Cancelled Cancelled Amorphous Sediment Cancelled Cancelled Urine Bacteria Cancelled Cancelled Hyaline Casts Cancelled Cancelled Granular Casts Cancelled Cancelled RBC Casts Cancelled Cancelled WBC Casts Cancelled Cancelled Other Casts Cancelled Cancelled Urine Mucus Cancelled Cancelled Urine Trichomonas Cancelled Cancelled Urine Yeast Cancelled Cancelled Urine Sperm Cancelled Cancelled Ur Culture Indicated? Cancelled Cancelled Micro UA Comment Cancelled Cancelled U Random Total Protein 82 H (0-12) mg/dL Urine Creatinine 18.0 mg/dL Protein/Creatinin Ratio 4.55 GRAM/24H SARS-CoV-2 (PCR) (Negative) 10/19/20 10/19/20 Range/Units 19:55 20:05 WBC (4.5-11.0) X10^3/uL RBC (4.0-5.2) X10^6/uL Hgb (12.0-16.0) g/dL Hct (36-46) % MCV (80-100) fL MCH (26-34) PG MCHC (30-36) % RDW (11.6-14.8) % Plt Count (150-400) X10^3/uL Neut % (Auto) (50-75) % Lymph % (Auto) (25-40) % [place] % (Auto) (3-14) % Eos % (Auto) (2-4) % Baso % (Auto) (0-2) % Neut # (Auto) (3708-8005) /uL Lymph # (Auto) (4556-8207) /uL [place] # (Auto) (0-900) /uL Eos # (Auto) (0-450) /uL Baso # (Auto) (0-100) /uL Sodium (137-145) mmol/L Potassium (3.4-5.1) mmol/L Chloride (98-107) mmol/L Carbon Dioxide (22-32) mmol/L BUN (7-17) mg/dL Creatinine (0.52-1.04) mg/dL Estimated GFR (>60) mL/min BUN/Creatinine Ratio (6-22) Glucose (70-100) mg/dL Calcium (8.4-10.2) mg/dL Total Bilirubin (0.2-1.3) mg/dL AST (14-36) IU/L ALT (<35) IU/L Alkaline Phosphatase (38-126) U/L Lactate Dehydrogenase (313-618) U/L Total Protein (6.3-8.2) g/dL Albumin (3.5-5.0) g/dL Globulin (1.7-4.1) g/dL Albumin/Globulin Ratio (1.0-2.8) Lipase (23-300) U/L Urine Color Straw Urine Appearance Clear Urine pH 7.0 Ur Specific [place] 1.015 Urine Protein 2+ H Urine Glucose (UA) Negative Urine Ketones Negative Urine Occult Blood 1+ H Urine Nitrate Negative Urine Bilirubin Negative Urine Urobilinogen 0.2 Ur Leukocyte Esterase Negative Urine RBC 1-5/hpf Urine WBC None seen Ur Squamous Epith Cells Ur Transition Epith Cell Ur Renal Epithelial Cell Calcium Oxalate Crystal Uric Acid Crystals Triple Phos Crystals Other Crystals Amorphous Sediment Urine Bacteria None seen Hyaline Casts Granular Casts RBC Casts WBC Casts Other Casts Urine Mucus 1+ H Urine Trichomonas Urine Yeast Urine Sperm Ur Culture Indicated? Cult not indicated Micro UA Comment U Random Total Protein (0-12) mg/dL Urine Creatinine mg/dL Protein/Creatinin Ratio GRAM/24H SARS-CoV-2 (PCR) Negative (Negative) MDM Narrative Medical decision making narrative: Patient is alert oriented x3. GCS of 15. Does not have any abdominal tenderness. Initial blood pressure was elevated and this persisted after multiple checks over the course of several hours. She was eventually given labetalol for her high blood pressure. This have slight elevation in her LFTs. Does have protein in her urine. Her platelets are not low. Given her clinical presentation there was concern for preeclampsia. Discussed the case with Dr. Kaplan on-call for OBGYN who will admit for further evaluation and treatment. Discussed the admission with the patient. She expressed understanding agreement. Discharge Plan Departure Patient Disposition: Admitted As Inpatient Clinical Impression: Pre-eclampsia in period Admit Date/Time: 10/19/20 20:38 Admit Provider: Didier Kaplan
[2020-10-19] MEDS: LABETALOL 20 MG/4 ML SYRINGE 10 MG IV (20:04)
[2020-10-19 20:10] LABS: Bacteria Urine None Seen; WBC Urine None Seen (0-5/HPF)
[2020-10-19 20:13] LABS: Appearance Urine UA CLEAR; Bilirubin Urine UA NEGATIVE (NEGATIVE); Glucose Urine UA NEGATIVE (Negative); Ketones Urine UA NEGATIVE (NEGATIVE); Leukocyte Esterase Urine UA NEGATIVE (NEGATIVE); Nitrite Urine UA NEGATIVE (Negative); Occult Blood Urine UA 1+ (Negative); Protein Urine UA 2+ (Negative); Specific Gravity Urine UA 1.015 (1.000-1.035); Urobilinogen Urine UA 0.2 E.U./dL (0.2)
[2020-10-19 20:15] LABS: Color Urine UA Straw
[2020-10-19 20:20] LABS: Protein (Total) Urine Random 82 mg/dL (0-12); Protein Creatinine Ratio Urine 4.55 GRAM/24H
[2020-10-19 20:22] LABS: Culture Indicated Urine Cult Not Indicated; Mucus Urine 1+ (Negative); RBC Urine 1-5/HPF (0-5/HPF)
[2020-10-19] MEDS: MAGNESIUM SULFATE 4 GM/100 ML PIGGYBACK IV (20:43)
--- NOTE | 2020-10-19 21:12 | PM.HP.1 ---
History of Present Illness History of Present Illness Date Patient Seen: 10/19/20 Time Patient Seen: 20:15 Date of Onset of Symptoms: 10/19/20 Chief complaint: bad headache/preeclampsia 5 days Narrative: Kaleigh is a 25 yo s/p 10/14/2020 after induction for elevated BP who presents today on day 5 with a 12 hour history of headaches, blurred vision, and elevated blood pressure at home. Blood pressure elevations in the emergency department range this high as upper 160's systolic, her ALT and AST are both mildly elevated, and her protein:creatinine ratio is elevated at 4.55. She denies right upper quadrant pain or scotomata. Patient did not meet preeclampsia criteria during her induction and delivery but did have blood pressure elevation at the end of her within about 48 hours of her delivery. Her course had been proceeding normally, she is , and she has a repaired perineal laceration for which she is performing her routine ellen-care. Post delivery pain has been well managed at home using Tylenol and/or Ibuprofen. With the diagnosis of late onset preeclampsia with severe features, the patient is admitted now for observation on the [facility], BP control, and initiation of IV magnesium sulfate. Patient History Medical History Allergic reaction Anterior epistaxis Asthma Concussion (~10/2016) Constipation Eczema Fracture, finger, multiple sites (~2018) Headache Heart murmur (~2015) History of migraine Irregular menstrual cycle Kidney stone (~10/2018) Post-concussion headache Surgical History No significant past surgical history [place] teeth extracted (~2016) Family & Social History Family History Brother Age: 21 Asthma Father Age: 49 Hyperlipidemia Diabetes mellitus Sister Age: 14 Asthma GERD (gastroesophageal reflux disease) History of gastrointestinal surgery Mother No problems noted. Grandmother Diabetes mellitus Grandfather Status post cardiac surgery Family estrangement Grandmother Diabetes mellitus Grandfather Status post cardiac surgery Asthma Brother Age: 21 Asthma Epileptic seizures Allergic eczema Egg allergy Sister Age: 10 Asthma Febrile seizures Social History: household members spouse lives independently No caregiver/support person No Safety & Behavioral: Feels Safe in Current Yes Environment Tobacco & Substance use: Smoking Status Never smoker alcohol intake former alcohol intake frequency 0-2 drinks per day Substance Use Type does not use Meds Home Medications and Allergies Home Medications Medication Instructions Recorded Confirmed Type cetirizine 20 mg PO QDAYP PRN #0 05/15/16 10/09/20 History epinephrine 0.3 mg IM PRN PRN #1 syr 04/08/17 10/09/20 Rx fluticasone propionate 1 spray 03/24/18 10/09/20 History albuterol sulfate 90 mcg/actuation 2 puff INHALATION Q4-6H PRN 05/01/20 10/09/20 History aerosol inhaler folic acid 400 mcg tablet 0.4 mg PO DAILY 05/01/20 10/13/20 History levothyroxine 50 mcg capsule 50 mcg PO DAILY 05/01/20 10/09/20 History metformin 500 mg tablet 500 mg PO BID 05/01/20 10/13/20 History prenat.vits,brock,qyx-xfan-utliz 1 tab PO DAILY 05/01/20 10/09/20 History ergocalciferol (vitamin D2) 1,250 1,250 mcg PO QWEEK 05/08/20 10/09/20 History mcg (50,000 unit) capsule docusate sodium [DOK] 100 mg PO DAILY #20 cap 10/16/20 Rx ibuprofen 600 mg PO Q6HR PRN #20 tab 10/16/20 Rx Allergies Allergy/AdvReac Type Severity Reaction Status Date / Time penicillin G [PENICILLIN G] Allergy Severe rash Verified 10/19/20 17:49 wheat [WHEAT] Allergy Severe Anaphylactic Verified 10/19/20 17:49 reaction, has EpiPen allergy shot Allergy Severe Swelling Uncoded 10/19/20 17:49 of tongue, throat. Review of Systems Review of Systems ROS: Yes All systems reviewed with the patient and are negative except as otherwise documented Exam Vital Signs (past 8 hours): - 10/19/20 17:50 10/19/20 18:19 10/19/20 18:20 Temperature 97.7 F Pulse Rate 107 H 95 H 93 H Respiratory Rate 18 Blood Pressure 165/97 H 162/96 H Pulse Oximetry 100 99 100 10/19/20 18:30 10/19/20 18:56 10/19/20 19:00 Temperature Pulse Rate 89 90 91 H Respiratory Rate Blood Pressure 145/85 H 150/82 H 136/73 Pulse Oximetry 99 100 100 10/19/20 19:20 10/19/20 19:30 10/19/20 20:00 Temperature Pulse Rate 83 82 Respiratory Rate 18 Blood Pressure 144/95 H 149/90 H 164/79 H Pulse Oximetry 98 99 10/19/20 20:03 10/19/20 20:10 10/19/20 20:20 Temperature Pulse Rate 81 82 79 Respiratory Rate 18 18 16 Blood Pressure 157/83 H 144/73 H 146/89 H Pulse Oximetry 99 98 98 10/19/20 20:37 10/19/20 20:40 10/19/20 20:41 Temperature Pulse Rate 84 82 81 Respiratory Rate Blood Pressure 139/85 139/85 148/73 H Pulse Oximetry 97 98 99 Oxygen Delivery Method Room Air Const General: cooperative Nutritional Appearance: obese Orientation: alert and oriented x3 HENMT Head: normocephalic and atraumatic Ears: hearing grossly normal bilaterally Nose: external nose normal Face and sinus: face symmetric Eyes General: appearance normal, both eyes and all related structures Alignment and Position: alignment normal Eyelids: eyelids normal Conjunctivae: conjunctivae normal Sclera: sclerae normal Cornea: corneas normal Pupils: PERRL EOM: EOM intact bilaterally Neck Neck: full ROM and No lymphadenopathy Thyroid: thyroid normal Lymphatic: No lymphadenopathy Resp Effort & Inspection: normal respiratory effort Auscultation: clear to auscultation bilaterally Cardio Rate: regular rate Rhythm: regular rhythm Heart Sounds: S1 normal and S2 normal GI Inspection: distended (Mild distension), no incisions and obesity Palpation: soft and no hepatosplenomegaly General: other (Pelvic exam deferred) Neuro General: patient alert, patient awake and patient oriented x3 Cranial Nerves: CN's II-XI intact bilaterally Cognition: normal cognition Speech: speech normal Gait: antalgic Motor: muscle tone normal throughout Sensory Exam: no sensory deficits noted DTR's: Rt Patellar: 2+ and Lt Patellar: 2+ Extrem General: normal to inspection Right lower extremity: normal to inspection and edema Details: 1+ Left lower extremity: normal to inspection and edema Details: 1+ Other: No significant calf tenderness on either side Psych Appearance: grossly normal Mental Status: mental status grossly normal Speech and Movement: speech and movement normal Mood: congruent mood Affect: normal affect Attitude: cooperative Thought Process: normal Thought Content: normal Judgment: judgment good Objective Labs Result Diagrams: 10/19/20 17:53 10/19/20 17:53 Labs: Laboratory Results - last 24 hr 10/19/20 10/19/20 10/19/20 17:53 17:53 17:53 WBC 8.8 RBC 3.21 L Hgb 9.0 L Hct 27.1 L MCV 84.4 MCH 28.1 MCHC 33.3 RDW 17.5 H Plt Count 423 H Neut % (Auto) 56.4 Lymph % (Auto) 28.7 [place] % (Auto) 8.8 Eos % (Auto) 5.7 H Baso % (Auto) 0.4 Neut # (Auto) 5000 Lymph # (Auto) 2500 [place] # (Auto) 800 Eos # (Auto) 500 H Baso # (Auto) 0 Sodium 138 Potassium 4.6 Chloride 106 Carbon Dioxide 26 BUN 15 Creatinine 0.51 L Estimated GFR > 60.0 BUN/Creatinine Ratio 29.4 H Glucose 100 Calcium 8.6 Total Bilirubin 0.1 L AST 51 H ALT 68 H Alkaline Phosphatase 130 H Lactate Dehydrogenase 634 H Total Protein 6.3 Albumin 3.1 L Globulin 3.2 Albumin/Globulin Ratio 1.0 Lipase 92 Urine Color Urine Appearance Urine pH Ur Specific [place] Urine Protein Urine Glucose (UA) Urine Ketones Urine Occult Blood Urine Nitrate Urine Bilirubin Urine Urobilinogen Ur Leukocyte Esterase Urine RBC Urine WBC Ur Squamous Epith Cells Ur Transition Epith Cell Ur Renal Epithelial Cell Calcium Oxalate Crystal Uric Acid Crystals Triple Phos Crystals Other Crystals Amorphous Sediment Urine Bacteria Hyaline Casts Granular Casts RBC Casts WBC Casts Other Casts Urine Mucus Urine Trichomonas Urine Yeast Urine Sperm Ur Culture Indicated? Micro UA Comment U Random Total Protein Urine Creatinine Protein/Creatinin Ratio 10/19/20 10/19/20 10/19/20 19:02 19:53 19:53 WBC RBC Hgb Hct MCV MCH MCHC RDW Plt Count Neut % (Auto) Lymph % (Auto) [place] % (Auto) Eos % (Auto) Baso % (Auto) Neut # (Auto) Lymph # (Auto) [place] # (Auto) Eos # (Auto) Baso # (Auto) Sodium Potassium Chloride Carbon Dioxide BUN Creatinine Estimated GFR BUN/Creatinine Ratio Glucose Calcium Total Bilirubin AST ALT Alkaline Phosphatase Lactate Dehydrogenase Total Protein Albumin Globulin Albumin/Globulin Ratio Lipase Urine Color Cancelled Cancelled Urine Appearance Cancelled Cancelled Urine pH Cancelled Cancelled Ur Specific [place] Cancelled Cancelled Urine Protein Cancelled Cancelled Urine Glucose (UA) Cancelled Cancelled Urine Ketones Cancelled Cancelled Urine Occult Blood Cancelled Cancelled Urine Nitrate Cancelled Cancelled Urine Bilirubin Cancelled Cancelled Urine Urobilinogen Cancelled Cancelled Ur Leukocyte Esterase Cancelled Cancelled Urine RBC Cancelled Cancelled Urine WBC Cancelled Cancelled Ur Squamous Epith Cells Cancelled Cancelled Ur Transition Epith Cell Cancelled Cancelled Ur Renal Epithelial Cell Cancelled Cancelled Calcium Oxalate Crystal Cancelled Cancelled Uric Acid Crystals Cancelled Cancelled Triple Phos Crystals Cancelled Cancelled Other Crystals Cancelled Cancelled Amorphous Sediment Cancelled Cancelled Urine Bacteria Cancelled Cancelled Hyaline Casts Cancelled Cancelled Granular Casts Cancelled Cancelled RBC Casts Cancelled Cancelled WBC Casts Cancelled Cancelled Other Casts Cancelled Cancelled Urine Mucus Cancelled Cancelled Urine Trichomonas Cancelled Cancelled Urine Yeast Cancelled Cancelled Urine Sperm Cancelled Cancelled Ur Culture Indicated? Cancelled Cancelled Micro UA Comment Cancelled Cancelled U Random Total Protein 82 H Urine Creatinine 18.0 Protein/Creatinin Ratio 4.55 10/19/20 19:55 WBC RBC Hgb Hct MCV MCH MCHC RDW Plt Count Neut % (Auto) Lymph % (Auto) [place] % (Auto) Eos % (Auto) Baso % (Auto) Neut # (Auto) Lymph # (Auto) [place] # (Auto) Eos # (Auto) Baso # (Auto) Sodium Potassium Chloride Carbon Dioxide BUN Creatinine Estimated GFR BUN/Creatinine Ratio Glucose Calcium Total Bilirubin AST ALT Alkaline Phosphatase Lactate Dehydrogenase Total Protein Albumin Globulin Albumin/Globulin Ratio Lipase Urine Color Straw Urine Appearance Clear Urine pH 7.0 Ur Specific [place] 1.015 Urine Protein 2+ H Urine Glucose (UA) Negative Urine Ketones Negative Urine Occult Blood 1+ H Urine Nitrate Negative Urine Bilirubin Negative Urine Urobilinogen 0.2 Ur Leukocyte Esterase Negative Urine RBC 1-5/hpf Urine WBC None seen Ur Squamous Epith Cells Ur Transition Epith Cell Ur Renal Epithelial Cell Calcium Oxalate Crystal Uric Acid Crystals Triple Phos Crystals Other Crystals Amorphous Sediment Urine Bacteria None seen Hyaline Casts Granular Casts RBC Casts WBC Casts Other Casts Urine Mucus 1+ H Urine Trichomonas Urine Yeast Urine Sperm Ur Culture Indicated? Cult not indicated Micro UA Comment U Random Total Protein Urine Creatinine Protein/Creatinin Ratio Assessment & Plan Assessment and plan (1) Pre-eclampsia in period: Problem details: - Admit for IV magnesium sulfate times 24 hours and blood pressure control with antihypertensive agents as indicated. She has received a single dose of IV labetalol, 10 mg, in the emergency department and will be initiated on 200 mg of oral labetalol b.i.d. with 20 mg of labetalol IV as needed for hypertensive emergencies. - Serial lab determinations as ordered - SQ Lovenox for DVT/PE prophylaxis - Continue routine PP care Status: Acute (2) Asthma: Problem details: - PRN Albuterol Status: Chronic (3) Allergy to wheat: Problem details: - Dietary restriction noted. 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
[2020-10-19 22:11] LABS: COVID19 - ADMIT (NP swab/PCR) Negative (Negative)
[2020-10-19] MEDS: LABETALOL 100 MG TABLET 200 MG PO (22:19)
[2020-10-19] MEDS: DERMOPLAST SPRAY 20% 60 ML 1 SPRAY TOP (22:20)
[2020-10-19] MEDS: ENOXAPARIN 40 MG/0.4 ML SYRINGE SUBCUT (22:30)
[2020-10-19] MEDS: ACETAMINOPHEN 325 MG TABLET 975 MG PO (22:36)
[2020-10-19] MEDS: MAGNESIUM SULFATE 20 GM/500 ML IV.SOLN IV (22:58)
[2020-10-20] VITALS (14 sets, daily range): BP systolic 110–142; BP diastolic 57–83; PULSE 77–97; RESP 15–18; TEMP 35.8–36.8; O2SAT 97–99
--- NOTE | 2020-10-20 00:19 | PC.NURSE ---
Addendum entered by Oxana Allred R.N. 10/20/20 02:25: Patient is A&O x4, LOC is awake and alert, VS as documented. DTR's are at 1+ at this time. No clonus observed. 2+ pitting edema to bilateral lower extremities. Patient denies a headache at this time, denies URQ pain, denies vision changes. Call light in reach. Original Note: Patient is A&O x4, LOC is awake and alert, VS as documented. DTR's are 1+ at this time. No clonus observed. 2+ pitting edema to bilateral lower extremities. Patient reported a headache when she first arrived to unit, was given medications as ordered, now denies any headache at all. Patient demonstrated ability to ambulate safely with SBA to the BR, voiding without difficulty. Patient has and at the bedside. Call light within reach.
[2020-10-20 01:21] LABS: PTT Partial Thromboplastin Tim 41 SECONDS (26.4-36.2)
[2020-10-20] MEDS: LEVOTHYROXINE 50 MCG TABLET PO (06:04)
[2020-10-20] MEDS: ACETAMINOPHEN 325 MG TABLET 975 MG PO ×2 (06:04→14:02)
[2020-10-20 07:29] LABS: Add Manual Diff / Slide Review NO; Basophils Absolute Auto 100 /uL (0-100); Basophils Percent Auto 0.7 % (0-2); Eosinophils Absolute Auto 500 /uL (0-450); Eosinophils Percent Auto 6.4 % (2-4); Hematocrit 26.4 % (36-46); Hemoglobin 8.8 g/dL (12.0-16.0); Lymphocytes Absolute Auto 2100 /uL (1100-4500); Lymphocytes Percent Auto 27.9 % (25-40); Mean Corpuscular HGB Conc 33.3 % (30-36); Mean Corpuscular Hemoglobin 28.2 PG (26-34); Mean Corpuscular Volume 84.8 fL (80-100); Monocytes Absolute Auto 700 /uL (0-900); Monocytes Percent Auto 8.5 % (3-14); Neutrophils Absolute Auto 4300 /uL (1500-7000); Neutrophils Percent Auto 56.5 % (50-75); Platelet Count 425 X10^3/uL (150-400); Red Blood Cell Count 3.12 X10^6/uL (4.0-5.2); White Blood Cell Count 7.6 X10^3/uL (4.5-11.0)
[2020-10-20 07:47] LABS: Alanine Aminotransferase 60 IU/L (<35); Albumin 2.9 g/dL (3.5-5.0); Alkaline Phosphatase 134 U/L (38-126); Aspartate Aminotransferase 43 IU/L (14-36); Bilirubin Total 0.1 mg/dL (0.2-1.3); Bilirubin Unconjugated 0.1 mg/dL (0.0-1.1); Globulin 2.8 g/dL (1.7-4.1); HEMOLYSIS < 15 (0-50); Total Protein 5.7 g/dL (6.3-8.2)
[2020-10-20] MEDS: DOCUSATE 100 MG CAPSULE PO (09:42)
[2020-10-20] MEDS: LABETALOL 100 MG TABLET 200 MG PO ×2 (09:43→21:00)
[2020-10-20] MEDS: SODIUM CHLORIDE 0.9% 1,000 ML 125 ML IV ×2 (09:50→21:20)
--- NOTE | 2020-10-20 10:46 | PC.NURSE ---
1000- Helped with breasfeeding, using nipple shield
--- NOTE | 2020-10-20 11:09 | P.PN_ITS ---
Subjective Subjective Date Patient Seen: 10/20/20 Time Patient Seen: 11:09 Interval history: HD#1: Late onset preeclampsia with severe features, 6 days PP Overnight the patient's H/A and visual disturbances have resolved. No other complaints this AM. She and her baby are together and breast feeding continues uninterrupted. Exam Vital Signs (past 8 hours): - 10/20/20 05:00 10/20/20 07:35 10/20/20 09:30 Temperature 96.5 F L 97.8 F 96.8 F L Pulse Rate 77 90 92 H Respiratory Rate 15 17 17 Blood Pressure 142/80 H 132/80 130/75 Pulse Oximetry 99 98 98 10/20/20 10:41 Temperature 96.8 F L Pulse Rate 92 H Respiratory Rate 17 Blood Pressure Pulse Oximetry 98 Oxygen Delivery Method Room Air Const General: cooperative and comfortable Nutritional Appearance: obese Orientation: alert and oriented x3 HENMT Head: normocephalic and atraumatic Ears: hearing grossly normal bilaterally Eyes Conjunctivae: conjunctivae normal Sclera: sclerae normal EOM: EOM intact bilaterally Resp Auscultation: clear to auscultation bilaterally Cardio Rate: regular rate Rhythm: regular rhythm Heart Sounds: S1 normal and S2 normal GI Palpation: soft, no hepatosplenomegaly and No tender Neuro Cranial Nerves: CN's II-XI intact bilaterally Cognition: normal cognition Speech: speech normal DTR's: Rt Patellar: 2+ and Lt Patellar: 2+ Extrem Left lower extremity: normal to inspection Psych Attitude: cooperative Thought Process: normal Thought Content: normal Judgment: judgment good Objective Labs Result Diagrams: 10/20/20 07:20 10/19/20 17:53 Labs: Laboratory Results - last 24 hr 10/19/20 10/19/20 10/19/20 17:53 17:53 17:53 WBC 8.8 RBC 3.21 L Hgb 9.0 L Hct 27.1 L MCV 84.4 MCH 28.1 MCHC 33.3 RDW 17.5 H Plt Count 423 H Neut % (Auto) 56.4 Lymph % (Auto) 28.7 [place] % (Auto) 8.8 Eos % (Auto) 5.7 H Baso % (Auto) 0.4 Neut # (Auto) 5000 Lymph # (Auto) 2500 [place] # (Auto) 800 Eos # (Auto) 500 H Baso # (Auto) 0 APTT Sodium 138 Potassium 4.6 Chloride 106 Carbon Dioxide 26 BUN 15 Creatinine 0.51 L Estimated GFR > 60.0 BUN/Creatinine Ratio 29.4 H Glucose 100 Calcium 8.6 Magnesium Total Bilirubin 0.1 L Conjugated Bilirubin Unconjugated Bilirubin AST 51 H ALT 68 H Alkaline Phosphatase 130 H Lactate Dehydrogenase 634 H Total Protein 6.3 Albumin 3.1 L Globulin 3.2 Albumin/Globulin Ratio 1.0 Lipase 92 Urine Color Urine Appearance Urine pH Ur Specific [place] Urine Protein Urine Glucose (UA) Urine Ketones Urine Occult Blood Urine Nitrate Urine Bilirubin Urine Urobilinogen Ur Leukocyte Esterase Urine RBC Urine WBC Ur Squamous Epith Cells Ur Transition Epith Cell Ur Renal Epithelial Cell Calcium Oxalate Crystal Uric Acid Crystals Triple Phos Crystals Other Crystals Amorphous Sediment Urine Bacteria Hyaline Casts Granular Casts RBC Casts WBC Casts Other Casts Urine Mucus Urine Trichomonas Urine Yeast Urine Sperm Ur Culture Indicated? Micro UA Comment U Random Total Protein Urine Creatinine Protein/Creatinin Ratio SARS-CoV-2 (PCR) 10/19/20 10/19/20 10/19/20 19:02 19:53 19:53 WBC RBC Hgb Hct MCV MCH MCHC RDW Plt Count Neut % (Auto) Lymph % (Auto) [place] % (Auto) Eos % (Auto) Baso % (Auto) Neut # (Auto) Lymph # (Auto) [place] # (Auto) Eos # (Auto) Baso # (Auto) APTT Sodium Potassium Chloride Carbon Dioxide BUN Creatinine Estimated GFR BUN/Creatinine Ratio Glucose Calcium Magnesium Total Bilirubin Conjugated Bilirubin Unconjugated Bilirubin AST ALT Alkaline Phosphatase Lactate Dehydrogenase Total Protein Albumin Globulin Albumin/Globulin Ratio Lipase Urine Color Cancelled Cancelled Urine Appearance Cancelled Cancelled Urine pH Cancelled Cancelled Ur Specific [place] Cancelled Cancelled Urine Protein Cancelled Cancelled Urine Glucose (UA) Cancelled Cancelled Urine Ketones Cancelled Cancelled Urine Occult Blood Cancelled Cancelled Urine Nitrate Cancelled Cancelled Urine Bilirubin Cancelled Cancelled Urine Urobilinogen Cancelled Cancelled Ur Leukocyte Esterase Cancelled Cancelled Urine RBC Cancelled Cancelled Urine WBC Cancelled Cancelled Ur Squamous Epith Cells Cancelled Cancelled Ur Transition Epith Cell Cancelled Cancelled Ur Renal Epithelial Cell Cancelled Cancelled Calcium Oxalate Crystal Cancelled Cancelled Uric Acid Crystals Cancelled Cancelled Triple Phos Crystals Cancelled Cancelled Other Crystals Cancelled Cancelled Amorphous Sediment Cancelled Cancelled Urine Bacteria Cancelled Cancelled Hyaline Casts Cancelled Cancelled Granular Casts Cancelled Cancelled RBC Casts Cancelled Cancelled WBC Casts Cancelled Cancelled Other Casts Cancelled Cancelled Urine Mucus Cancelled Cancelled Urine Trichomonas Cancelled Cancelled Urine Yeast Cancelled Cancelled Urine Sperm Cancelled Cancelled Ur Culture Indicated? Cancelled Cancelled Micro UA Comment Cancelled Cancelled U Random Total Protein 82 H Urine Creatinine 18.0 Protein/Creatinin Ratio 4.55 SARS-CoV-2 (PCR) 10/19/20 10/19/20 10/20/20 19:55 20:05 01:00 WBC RBC Hgb Hct MCV MCH MCHC RDW Plt Count Neut % (Auto) Lymph % (Auto) [place] % (Auto) Eos % (Auto) Baso % (Auto) Neut # (Auto) Lymph # (Auto) [place] # (Auto) Eos # (Auto) Baso # (Auto) APTT Sodium Potassium Chloride Carbon Dioxide BUN Creatinine Estimated GFR BUN/Creatinine Ratio Glucose Calcium Magnesium 4.0 H Total Bilirubin Conjugated Bilirubin Unconjugated Bilirubin AST ALT Alkaline Phosphatase Lactate Dehydrogenase Total Protein Albumin Globulin Albumin/Globulin Ratio Lipase Urine Color Straw Urine Appearance Clear Urine pH 7.0 Ur Specific [place] 1.015 Urine Protein 2+ H Urine Glucose (UA) Negative Urine Ketones Negative Urine Occult Blood 1+ H Urine Nitrate Negative Urine Bilirubin Negative Urine Urobilinogen 0.2 Ur Leukocyte Esterase Negative Urine RBC 1-5/hpf Urine WBC None seen Ur Squamous Epith Cells Ur Transition Epith Cell Ur Renal Epithelial Cell Calcium Oxalate Crystal Uric Acid Crystals Triple Phos Crystals Other Crystals Amorphous Sediment Urine Bacteria None seen Hyaline Casts Granular Casts RBC Casts WBC Casts Other Casts Urine Mucus 1+ H Urine Trichomonas Urine Yeast Urine Sperm Ur Culture Indicated? Cult not indicated Micro UA Comment U Random Total Protein Urine Creatinine Protein/Creatinin Ratio SARS-CoV-2 (PCR) Negative 10/20/20 10/20/20 10/20/20 01:00 07:20 07:20 WBC 7.6 RBC 3.12 L Hgb 8.8 L Hct 26.4 L MCV 84.8 MCH 28.2 MCHC 33.3 RDW 18.0 H Plt Count 425 H Neut % (Auto) 56.5 Lymph % (Auto) 27.9 [place] % (Auto) 8.5 Eos % (Auto) 6.4 H Baso % (Auto) 0.7 Neut # (Auto) 4300 Lymph # (Auto) 2100 [place] # (Auto) 700 Eos # (Auto) 500 H Baso # (Auto) 100 APTT 41 H Sodium Potassium Chloride Carbon Dioxide BUN Creatinine Estimated GFR BUN/Creatinine Ratio Glucose Calcium Magnesium Total Bilirubin 0.1 L Conjugated Bilirubin 0.0 Unconjugated Bilirubin 0.1 AST 43 H ALT 60 H Alkaline Phosphatase 134 H Lactate Dehydrogenase Total Protein 5.7 L Albumin 2.9 L Globulin 2.8 Albumin/Globulin Ratio 1.0 Lipase Urine Color Urine Appearance Urine pH Ur Specific [place] Urine Protein Urine Glucose (UA) Urine Ketones Urine Occult Blood Urine Nitrate Urine Bilirubin Urine Urobilinogen Ur Leukocyte Esterase Urine RBC Urine WBC Ur Squamous Epith Cells Ur Transition Epith Cell Ur Renal Epithelial Cell Calcium Oxalate Crystal Uric Acid Crystals Triple Phos Crystals Other Crystals Amorphous Sediment Urine Bacteria Hyaline Casts Granular Casts RBC Casts WBC Casts Other Casts Urine Mucus Urine Trichomonas Urine Yeast Urine Sperm Ur Culture Indicated? Micro UA Comment U Random Total Protein Urine Creatinine Protein/Creatinin Ratio SARS-CoV-2 (PCR) [facility] Medical History Allergic reaction Anterior epistaxis Asthma Concussion (~10/2016) Constipation Eczema Fracture, finger, multiple sites (~2018) Headache Heart murmur (~2015) History of migraine Hypothyroidism (acquired) Irregular menstrual cycle Kidney stone (~10/2018) Post-concussion headache Surgical History No significant past surgical history [place] teeth extracted (~2016) Family History Brother Age: 21 Asthma Father Age: 49 Hyperlipidemia Diabetes mellitus Sister Age: 14 Asthma GERD (gastroesophageal reflux disease) History of gastrointestinal surgery Mother No problems noted. Grandmother Diabetes mellitus Grandfather Status post cardiac surgery Family estrangement Grandmother Diabetes mellitus Grandfather Status post cardiac surgery Asthma Brother Age: 21 Asthma Epileptic seizures Allergic eczema Egg allergy Sister Age: 10 Asthma Febrile seizures Social History marital status: household members: spouse lives independently: No caregiver/support person: No housing: house pets and animals: Yes (1 dog: safe) education level: college occupational status: employed current occupational exposures/hazards: No special dominik needs: No seatbelt use: always Smoking Status: Never smoker second hand exposure: No alcohol intake: former substance use type: does not use during the past year weight has: remained stable well-balanced diet: daily or most days caffeine: Yes (aware of 1 cup/day. ) Type(s) of exercise: normal ROM and activity frequency: does not exercise Assessment & Plan Assessment and plan (1) Pre-eclampsia in period: Problem details: - Started on 200 mg of oral labetalol b.i.d. with 20 mg of labetalol IV as needed. BP's are now in the normal range. Mg levels on 2 gm IV MgSO4 are therapeutic. - Serial lab determinations as ordered - SQ Lovenox for DVT/PE prophylaxis - Continue routine PP care - Dr. Griffin will be re-assuming care of the patient AM 10/21/2020 Status: Acute (2) Hypothyroidism (acquired): Problem details: - Continue levothyroxine Status: Chronic (3) Asthma: Problem details: - PRN Albuterol Qualifiers: Asthma severity: mild Asthma persistence: intermittent Asthma complication type: unspecified Qualified Code(s): J45.20 - Mild intermittent asthma, uncomplicated Status: Chronic (4) Allergy to wheat: Problem details: - Dietary restriction noted. EpiPen available PRN Status: Chronic Quality VTE Deep Vein Thrombosis/Pulmonary Embolism Present on Admission: No
[2020-10-20] MEDS: IBUPROFEN 400 MG TABLET 800 MG PO (21:00)
[2020-10-20] MEDS: ENOXAPARIN 40 MG/0.4 ML SYRINGE SUBCUT (22:13)
[2020-10-21] VITALS (12 sets, daily range): BP systolic 122–144; BP diastolic 63–87; PULSE 75–98; RESP 16–18; TEMP 36.3–36.9; O2SAT 98–99
--- NOTE | 2020-10-21 00:01 | PC.NURSE ---
DTR's 2+ and no clonus
[2020-10-21] MEDS: LEVOTHYROXINE 50 MCG TABLET PO (06:17)
--- NOTE | 2020-10-21 07:35 | PM.PN.1 ---
Subjective Subjective Date Patient Seen: 10/21/20 Time Patient Seen: 07:35 Interval history: Patient seen and evaluated this morning. Sleeping but woke her up. Patient stop magnesium last evening at about 9:00 p.m.. Still has a little bit of IV fluids going. Presented to the emergency department with headache and blurry vision. Patient states those symptoms have resolved. She says she feels much better. She feels like she is urinating a lot. Still has some swelling. She is eating and ambulating well. Still struggling with breast-feeding of her . Patient has no significant shortness of breath chest pain has some lower extremity edema but no calf tenderness. Exam Vital Signs (past 8 hours): - 10/21/20 01:00 10/21/20 03:00 10/21/20 06:00 Temperature 98.5 F 97.8 F 97.9 F Pulse Rate 75 88 87 Respiratory Rate 16 16 16 Blood Pressure 126/63 130/66 130/68 Oxygen Delivery Method Room Air Narrative Exam Narrative: Current vitals blood pressure is 130/68 pulse 72 respiratory rate 16 temperature is 98.4? previous blood pressure 126/63 General: Alert no apparent distress. Some mild generalized edema HEENT: Neck is supple without lymphadenopathy pupils equal round and reactive. Cardio: S1-S2 regular rate and rhythm. Respiratory: Lungs clear to auscultation. Abdomen: Uterus firm. Extremities: Normal deep tendon moderate edema no calf tenderness. Objective Labs Result Diagrams: 10/20/20 07:20 10/19/20 17:53 Labs: Laboratory Results - last 24 hr 10/20/20 07:20 Total Bilirubin 0.1 L Conjugated Bilirubin 0.0 Unconjugated Bilirubin 0.1 AST 43 H ALT 60 H Alkaline Phosphatase 134 H Total Protein 5.7 L Albumin 2.9 L Globulin 2.8 Albumin/Globulin Ratio 1.0 [facility] Medical History Allergic reaction Anterior epistaxis Asthma Concussion (~10/2016) Constipation Eczema Fracture, finger, multiple sites (~2018) Headache Heart murmur (~2015) History of migraine Hypothyroidism (acquired) Irregular menstrual cycle Kidney stone (~10/2018) Post-concussion headache Surgical History No significant past surgical history [place] teeth extracted (~2016) Family History Brother Age: 21 Asthma Father Age: 49 Hyperlipidemia Diabetes mellitus Sister Age: 14 Asthma GERD (gastroesophageal reflux disease) History of gastrointestinal surgery Mother No problems noted. Grandmother Diabetes mellitus Grandfather Status post cardiac surgery Family estrangement Grandmother Diabetes mellitus Grandfather Status post cardiac surgery Asthma Brother Age: 21 Asthma Epileptic seizures Allergic eczema Egg allergy Sister Age: 10 Asthma Febrile seizures Social History marital status: household members: spouse lives independently: No caregiver/support person: No housing: house pets and animals: Yes (1 dog: safe) education level: college occupational status: employed current occupational exposures/hazards: No special dominki needs: No seatbelt use: always Smoking Status: Never smoker second hand exposure: No alcohol intake: former substance use type: does not use during the past year weight has: remained stable well-balanced diet: daily or most days caffeine: Yes (aware of 1 cup/day. ) Type(s) of exercise: normal ROM and activity frequency: does not exercise Assessment & Plan Assessment & Plan narrative: preeclampsia. Patient admitted with symptoms with headache blurry vision elevated blood pressure and elevated liver enzymes. Patient was placed on magnesium labetalol and Lovenox. Patient was on magnesium for 24 hours. Patient was stop by the on-call physician on magnesium last evening. She has been feeling fine since then. She has no headache blurry vision this morning. Has some swelling but she says she is urinating frequently. She still on IV fluids and Lovenox and labetalol. She says she is eating and ambulating well. Does not have a lot of pain. Feeling okay as far as mental health goes. Plan today will be to stop IV fluids. Monitor blood pressures. Keep her in the hospital for 24 hours monitoring for signs and symptoms of further ongoing headache blurry vision hyper reflexia. Recheck liver enzymes hemoglobin hematocrit platelet count and magnesium level today. Acquired hypothyroidism. Patient will be continued on her thyroid medication. She is taking 50 mcg a day. Insulin resistance with prediabetes. She has been placed on metformin 500 mg a day she has not been getting that here in the hospital. Will continue to hold that and she can resume it when she leaves the hospital. Disposition and plan. Monitor for 24 more hours. Stabilize blood pressure patient is feeling well anticipate discharge tomorrow. Quality VTE Deep Vein Thrombosis/Pulmonary Embolism Present on Admission: No
[2020-10-21] MEDS: LABETALOL 100 MG TABLET 200 MG PO ×2 (09:54→17:32)
[2020-10-21] MEDS: DOCUSATE 100 MG CAPSULE PO (09:55)
[2020-10-21] MEDS: ENOXAPARIN 40 MG/0.4 ML SYRINGE SUBCUT (10:08)
[2020-10-21 13:33] LABS: Add Manual Diff / Slide Review NO; Basophils Absolute Auto 0 /uL (0-100); Basophils Percent Auto 0.4 % (0-2); Eosinophils Absolute Auto 500 /uL (0-450); Eosinophils Percent Auto 5.5 % (2-4); Hematocrit 25.5 % (36-46); Hemoglobin 8.8 g/dL (12.0-16.0); Lymphocytes Absolute Auto 2700 /uL (1100-4500); Lymphocytes Percent Auto 32.4 % (25-40); Mean Corpuscular HGB Conc 34.6 % (30-36); Mean Corpuscular Hemoglobin 29.1 PG (26-34); Mean Corpuscular Volume 84.2 fL (80-100); Monocytes Absolute Auto 700 /uL (0-900); Monocytes Percent Auto 8.2 % (3-14); Neutrophils Absolute Auto 4400 /uL (1500-7000); Neutrophils Percent Auto 53.5 % (50-75); Platelet Count 490 X10^3/uL (150-400); Red Blood Cell Count 3.03 X10^6/uL (4.0-5.2); Red Cell Distribution Width 18.2 % (11.6-14.8); White Blood Cell Count 8.2 X10^3/uL (4.5-11.0)
[2020-10-21 13:55] LABS: Alanine Aminotransferase 42 IU/L (<35); Alkaline Phosphatase 119 U/L (38-126); Aspartate Aminotransferase 33 IU/L (14-36); Blood Urea Nitrogen 13 mg/dL (7-17); Calcium 8.8 mg/dL (8.4-10.2); Carbon Dioxide 23 mmol/L (22-32); Chloride 108 mmol/L (98-107); Estimated Glomerular Filt Rate > 60.0 mL/min (>60); Glucose 112 mg/dL (70-100); HEMOLYSIS < 15 (0-50); Potassium 4.2 mmol/L (3.4-5.1); Sodium 137 mmol/L (137-145)
[2020-10-21 13:57] LABS: Bilirubin Total < 0.1 mg/dL (0.2-1.3)
[2020-10-21] MEDS: ACETAMINOPHEN 325 MG TABLET 975 MG PO (15:05)
--- NOTE | 2020-10-21 15:34 | PC.NURSE ---
0845- baby feeding on moms L breast. Sucking intermittently. Mom also pumping/bottle feeding. 1015- Pt up to shower, feels well, no complaints of pain. Glove placed on hand to cover saline lock. 1048- pt up to sink, drying hair. Reports feeling well. Pt accidentally pulled IV catheter out while taking glove off. Catheter intact. Encouraged patient to drink fluids.
--- NOTE | 2020-10-21 16:13 | P.DS_ITS ---
History of Present Illness History of Present Illness Chief complaint: bad headache/preeclampsia 5 days Discharge Providers Provider Date of admission: 10/19/20 20:38 Discharge Date: 10/21/20 Primary care physician: Ramona Finney DO Discharge provider: Giovanni Grfifin MD Summary Hospital Course Discharge Diagnosis: preeclampsia Elevated blood pressure Acquired hypothyroidism Insulin resistant Hospital Course: Patient was admitted back to the center with the headache and visual changes an elevated blood pressure. Patient delivered in the hospital approximately 1 week ago she had some mild abnormalities of her blood work and elevated blood pressure did during her delivery course. Her stay was prolonged a couple of days to keep an eye on her blood pressure. Which after delivery went down nicely. Patient at time of discharge from the hospital previously had had no headache no blurry vision normal reflexes and mild swelling and normal blood pressure. She was me admitted to the hospital with the signs and symptoms consistent with preeclampsia such as headache blurry vision she was started on magnesium drip for 24 hours she had blood work which showed mild elevation of her liver enzymes which were more so than her previous hospitalization. After starting magnesium she was given also labetalol 200 mg IV twice daily. Patient is a symptoms gradually resolved over the ensuing few hours after being hospitalized. After 24 hours her magnesium was stopped. And patient was feeling well for 24 hours. Her blood pressure was controlled with labetalol 200 mg twice daily. During her hospital stay she had normal reflexes she has some edema with but was start diuresing well she was tolerating her diet she was ambulating well is still struggling with some breastfeed. The time of discharge her vital signs were stable she will be discharged home in addition to her previous medication on labetalol 200 mg twice daily and patient will be seen back in the office within 5-7 days. Exam Vital Signs (past 8 hours): - 10/21/20 08:30 10/21/20 09:30 10/21/20 09:54 Temperature 97.3 F L 97.3 F L Pulse Rate 96 H 96 H 96 H Respiratory Rate 18 18 Blood Pressure 140/87 140/87 140/87 Pulse Oximetry 98 98 10/21/20 11:30 10/21/20 14:15 Temperature 97.4 F L 98.0 F Pulse Rate 93 H 98 H Respiratory Rate 18 18 Blood Pressure 122/67 134/75 Pulse Oximetry Oxygen Delivery Method Room Air Objective Labs Result Diagrams: 10/21/20 13:21 10/21/20 13:21 Labs: Laboratory Results - last 24 hr 10/21/20 10/21/20 10/21/20 13:21 13:21 13:21 WBC 8.2 RBC 3.03 L Hgb 8.8 L Hct 25.5 L MCV 84.2 MCH 29.1 MCHC 34.6 RDW 18.2 H Plt Count 490 H Neut % (Auto) 53.5 Lymph % (Auto) 32.4 [place] % (Auto) 8.2 Eos % (Auto) 5.5 H Baso % (Auto) 0.4 Neut # (Auto) 4400 Lymph # (Auto) 2700 [place] # (Auto) 700 Eos # (Auto) 500 H Baso # (Auto) 0 Sodium 137 Potassium 4.2 Chloride 108 H Carbon Dioxide 23 BUN 13 Creatinine 0.52 Estimated GFR > 60.0 BUN/Creatinine Ratio 25.0 H Glucose 112 H Calcium 8.8 Magnesium 2.0 Total Bilirubin < 0.1 L AST 33 ALT 42 H Alkaline Phosphatase 119 Total Protein 6.0 L Albumin 3.0 L Globulin 3.0 Albumin/Globulin Ratio 1.0 [facility] Medical History Allergic reaction Anterior epistaxis Asthma Concussion (~10/2016) Constipation Eczema Fracture, finger, multiple sites (~2018) Headache Heart murmur (~2015) History of migraine Hypothyroidism (acquired) Irregular menstrual cycle Kidney stone (~10/2018) Post-concussion headache Surgical History No significant past surgical history [place] teeth extracted (~2016) Family History Brother Age: 21 Asthma Father Age: 49 Hyperlipidemia Diabetes mellitus Sister Age: 14 Asthma GERD (gastroesophageal reflux disease) History of gastrointestinal surgery Mother No problems noted. Grandmother Diabetes mellitus Grandfather Status post cardiac surgery Family estrangement Grandmother Diabetes mellitus Grandfather Status post cardiac surgery Asthma Brother Age: 21 Asthma Epileptic seizures Allergic eczema Egg allergy Sister Age: 10 Asthma Febrile seizures Social History marital status: household members: spouse lives independently: No caregiver/support person: No housing: house pets and animals: Yes (1 dog: safe) education level: college occupational status: employed current occupational exposures/hazards: No special dominik needs: No seatbelt use: always Smoking Status: Never smoker second hand exposure: No alcohol intake: former substance use type: does not use during the past year weight has: remained stable well-balanced diet: daily or most days caffeine: Yes (aware of 1 cup/day. ) Type(s) of exercise: normal ROM and activity frequency: does not exercise Discharge Plan Discharge Plan Patient Disposition: Home Discharge orders & Medications Prescriptions: New labetalol 100 mg Tablet 200 mg PO BID Qty: 60 RF: 0 Continued ergocalciferol (vitamin D2) 1,250 mcg (50,000 unit) capsule 1,250 mcg PO QWEEK RF: 0 cetirizine 10 MG tablet 20 mg PO QDAYP PRN (Reason: Constipation) Qty: 0 RF: 0 epinephrine 0.3 MG/0.3 ML auto-injector 0.3 mg IM PRN PRNQty: 1 RF: 0 prenat.vits,brock,scb-[id number] Tablet 1 tab PO DAILY RF: 0 folic acid 400 mcg tablet 0.4 mg PO DAILY RF: 0 metformin 500 mg tablet 500 mg PO BID RF: 0 levothyroxine 50 mcg capsule 50 mcg PO DAILY RF: 0 albuterol sulfate 90 mcg/actuation HFA aerosol inhaler 2 puff inhalation Q4-6H PRNRF: 0 fluticasone propionate 50 mcg/actuation spray,suspension 1 spray RF: 0 docusate sodium [DOK] 100 mg Capsule 100 mg PO DAILY Qty: 20 RF: 0 ibuprofen 600 mg Tablet 600 mg PO Q6HR PRN (Reason: Pain, Mild (1-3)) Qty: 20 RF: 0 Follow up/Referrals: Ramona Finney DO [Primary Care Provider] - Visit Report/Discharge Packet Visit Report Forms: Patient Portal/API, Stroke Signs & Symptoms Discharge Data Primary Care Provider: Ramona Finney Quality VTE Deep Vein Thrombosis/Pulmonary Embolism Present on Admission: No
--- NOTE | 2020-10-21 16:33 | PC.NURSE ---
1630- Assessment complete, alert and oriented x3. Lung sounds clear. Pt reports pain level of 0. Pt DTR wnl, negative clonus noted. +2 pitting edema noted in bilateral lower extremities, edema has increased through day- morning assessment included slight, nonpitting edema. VSS and charted. Pt has been pumping/ independently throughout day. Support person is involved and helpful.
== END 2020-10-21 17:55 | disposition home or self-care (01) | DRG 776 ==
LOC: ED 20:22 → AC 20:39 → LABOR 21:49
PROVIDERS: Family Medicine; Admitting Provider Obstetrics & Gynecology; Emergency Provider Emergency Medicine; PCP Obstetrics & Gynecology; Referring Provider Emergency Medicine; Visit Provider Obstetrics & Gynecology
DX: O14.95 Unspecified pre-eclampsia, complicating the puerperium (principal); O90.89 Other complications of the puerperium, not elsewhere classified; J45.20 Mild intermittent asthma, uncomplicated; E03.9 Hypothyroidism, unspecified; R73.03 Prediabetes; Z91.018 Allergy to other foods; Z79.84 Long term (current) use of oral hypoglycemic drugs; Z20.822 Contact with and (suspected) exposure to COVID-19
CPT/HCPCS: 36415; 51701; 80053; 80076; 81001; 82570; 83615; 83690; 83735; 84156; 85025; 85730; 87635; 99284; C9803; A9270; J1650; J3475